=== PATIENT | female | born 1980 | race Caucasian/White ===

== ENCOUNTER 2020-05-05 10:03 | Emergency (ER) | payer MEDICAID ==
[2020-05-05] MEDS ORDERED: FLU VACC QS2020-21(6MOS UP)/PF 60 MCG/0.5 ML SYRINGE IM ONE (10:30)
--- NOTE | 2020-05-05 10:36 | EDM.PDOC ---
ED HPI GENERAL MEDICAL PROBLEM - General Chief Complaint: Skin Complaint Stated Complaint: ABCESS ON L FOOT Time Seen by Provider: 05/05/20 10:35 - History of Present Illness INITIAL COMMENTS - FREE TEXT/NARRATIVE: 39-year-old female presents the emergency room with a painful area on her left foot. This is been getting worse over the last couple of days. Patient is tried some Epson salts soaks at home. And this helps a little bit. Patient denies any trauma to the area. However, the patient was injecting IV drugs at that site. Patient has not had problems like this in the past. Is not had any fevers or chills and other than the foot pain has been feeling normal. Left Feet Pain Score (Numeric/FACES): 8 - Related Data Allergies Allergy/AdvReac Type Severity Reaction Status Date / Time No Known Allergies Allergy Verified 05/05/20 10:11 Home Meds: Home Meds FLUoxetine [PROzac] 0 mg PO DAILY 05/05/20 [History] Sulfamethoxazole/Trimethoprim [Bactrim Ds Tablet] 1 each PO BID #20 tablet 05/05/20 [Rx] lamoTRIgine [LaMICtal] 0 mg PO DAILY 05/05/20 [History] traZODone HCl [Trazodone HCl] 0 mg PO DAILY 05/05/20 [History] Past Medical History - Past Health History Medical/Surgical History: Denies Medical/Surgical History Psychiatric History: Reports: Addiction - Infectious Disease History Infectious Disease History: Reports: Hepatitis C, MRSA - Past Surgical History GI Surgical History: Reports: Cholecystectomy Social & Family History - Tobacco Use Smoking Status *Q: Current Every Day Smoker Years of Tobacco use: 24 Packs/Tins Daily: 0.5 - Caffeine Use Caffeine Use: Reports: Coffee, Soda - Recreational Drug Use Recreational Drug Use: Yes Recreational Drug Type: Reports: Methamphetamine ED ROS GENERAL - Review of Systems Review Of Systems: See Below Constitutional: Reports: No Symptoms Respiratory: Reports: No Symptoms Cardiovascular: Reports: No Symptoms GI/Abdominal: Reports: No Symptoms ED EXAM, SKIN/RASH Exam: See Below Exam Limited By: No Limitations General Appearance: Alert, No Apparent Distress, Other (Size are assuring however her pulse is a little fast at 117 she is afebrile) Head: Atraumatic, Normocephalic Neck: Normal Inspection, Supple, Non-Tender, Full Range of Motion. No: Lymphad enopathy (L), Lymphadenopathy (R) Respiratory/Chest: No Respiratory Distress, Lungs Clear, Normal Breath Sounds Cardiovascular: Regular Rate, Rhythm, No Edema, No Murmur GI/Abdominal: Normal Bowel Sounds, Soft, Non-Tender Skin: Other (On the dorsum of her left foot has an area roughly 2 cm round with a central area no obvious drainage. And no area of fluctuation. I attempted to benita this with a 18-gauge needle and did not reveal any underlying exudate.) Course - Vital Signs Last Recorded V/S: Last Vital Signs Temp 36.2 C 05/05/20 10:08 Pulse 117 H 05/05/20 10:08 Resp 16 05/05/20 10:08 BP 123/81 05/05/20 10:08 Pulse Ox 100 05/05/20 10:08 - Orders/Labs/Meds Orders: Active Orders 24 hr Category Date Time Status Influenza Vaccine Charge [RC] .DISCHARGE Care 05/05/20 10:14 Active Meds: Medications Discontinued Medications Generic Name Dose Route Start Last Admin Trade Name [place] PRN Reason Stop Dose Admin Influenza Virus Vaccine 60 mcg 05/05/20 10:30 05/05/20 11:01 Fluzone Quad [id number] Syringe IM 05/05/20 10:31 60 mcg .ONCE ONE Administration Trimethoprim/Sulfamethoxazole 1 tab 05/05/20 11:13 05/05/20 11:19 Septra Ds PO 05/05/20 11:14 1 tab ONETIME ONE Administration - Re-Assessments/Exams Free Text/Narrative Re-Assessment/Exam: 05/05/20 10:57 No fluctuant area was found with palpation of the area however I did attempt to open it with a needle and revealed nothing. Patient will be started on Bactrim DS 1 p.o. twice daily for 10 days first dose to be given here in the emergency room she is to continue the Epson salt soaks 4-6 times a day. Departure - Departure Time of Disposition: 10:58 Disposition: Home, Self-Care 01 Clinical Impression: Injection site abscess, IVDU (intravenous drug user) - Discharge Information Prescriptions: Sulfamethoxazole/Trimethoprim [Bactrim Ds Tablet] 1 each PO BID #20 tablet Instructions: IV Infiltration, [id number] Referrals: PCP,Unknown [Primary Care Provider] - Forms: ED Department Discharge, ED Return to Work/School Form Additional Instructions: Return to the emergency room with any questions problems or worsening symptoms. Follow-up with your regular healthcare provider for recheck on Tuesday or of this week. Take the antibiotics 1 twice daily until they are all gone. Continue the Epson salt soaks do this 4-6 times a day. Sepsis Event Note (ED) - Evaluation Sepsis Screening Result: No Definite Risk - Focused Exam Vital Signs: Vital Signs Temp Pulse Resp BP Pulse Ox 05/05/20 10:08 36.2 C 117 H 16 123/81 100 - My Orders Last 24 Hours: My Active Orders 05/05/20 10:14 Influenza Vaccine Charge [RC] .DISCHARGE - Assessment/Plan Last 24 Hours: My Active Orders 05/05/20 10:14 Influenza Vaccine Charge [RC] .DISCHARGE
[2020-05-05] MEDS ORDERED: Sulfamethoxazole/Trimethoprim 800-160 MG Tab PO ONE (11:13)
== END 2020-05-05 11:35 | disposition home or self-care (01) ==
LOC: JD.ED 10:03
DX: L02.612 Cutaneous abscess of left foot (principal); F15.10 Other stimulant abuse, uncomplicated; F17.210 Nicotine dependence, cigarettes, uncomplicated; Z79.899 Other long term (current) drug therapy; Z23 Encounter for immunization
CPT/HCPCS: 90471; 90686; 99282; A9270; G0008

== ENCOUNTER 2021-01-10 10:57 | Emergency (ER) | payer MEDICAID ==
[2021-01-10] MEDS ORDERED: Sodium Chloride 0.9% 10 ML Syringe FLUSH PRN (11:12)
--- NOTE | 2021-01-10 11:20 | EDM.PDOC ---
ED HPI GENERAL MEDICAL PROBLEM - General Chief Complaint: Skin Complaint Stated Complaint: L ARM PAIN Time Seen by Provider: 01/10/21 11:06 Source of Information: Reports: Patient, RN Notes Reviewed History Limitations: Reports: No Limitations - History of Present Illness INITIAL COMMENTS - FREE TEXT/NARRATIVE: Patient is a 40-year-old female who presents to the ER for the evaluation of her left arm redness and swelling. Patient is an IV meth user, and states that she recently relapsed a few weeks ago. Notes that she has had this area on her left inner forearm, that has started to get red, tender and it had increased swelling for the past week. She states that she does have a history of MRSA, and has had abscesses like this in the past. She is not having any fevers or chills, cough, nausea/vomiting/diarrhea. She does state that she is having a difficult time taking a deep breath. She has not taken anything at home for pain management. She did have some leftover penicillin, and thought she would take this to see if this could help, but it was not helping. Left Arm Pain Score (Numeric/FACES): 10 - Related Data Allergies Allergy/AdvReac Type Severity Reaction Status Date / Time No Known Allergies Allergy Verified 01/10/21 11:06 Home Meds: Home Meds Acetaminophen/oxyCODONE [Percocet 325-5 MG] 1 each PO Q6H PRN #12 tab 01/10/21 [Rx] Sulfamethoxazole/Trimethoprim [Sulfamethoxazole-Tmp Ds Tablet] 1 tab PO BID #20 tablet 01/10/21 [Rx] Past Medical History Psychiatric History: Reports: Addiction - Infectious Disease History Infectious Disease History: Reports: Hepatitis C, MRSA - Past Surgical History GI Surgical History: Reports: Cholecystectomy Social & Family History - Tobacco Use Tobacco Use Status *Q: Current Every Day Tobacco User Years of Tobacco use: 24 Packs/Tins Daily: 0.5 - Caffeine Use Caffeine Use: Reports: None - Recreational Drug Use Recreational Drug Use: Yes Recreational Drug Type: Reports: Methamphetamine Recreational Drug Use Frequency: Rarely ED ROS GENERAL - Review of Systems Review Of Systems: Comprehensive ROS is negative, except as noted in HPI. ED EXAM, SKIN/RASH Exam: See Below Exam Limited By: No Limitations General Appearance: Alert, WD/WN, No Apparent Distress, Anxious (slight generalized) Respiratory/Chest: No Respiratory Distress, Lungs Clear, Normal Breath Sounds, No Accessory Muscle Use, Chest Non-Tender Cardiovascular: Normal Peripheral Pulses, Regular Rate, Rhythm, No Edema GI/Abdominal: Normal Bowel Sounds, Soft, Non-Tender, No Distention, No Mass Extremities: Normal Inspection, Normal Capillary Refill Neurological: Alert, Oriented, Normal Cognition, No Motor/Sensory Deficits Psychiatric: Normal Affect, Normal Mood, Anxious (slight generalized) Skin: Warm, Dry, Intact, No Rash, Erythema (of left inner forearm, measures around 9x9cm; tenderness noted-no red streaking noted) Course - Vital Signs Last Recorded V/S: Last Vital Signs Temp 98 F 01/10/21 13:20 Pulse 90 01/10/21 13:20 Resp 16 01/10/21 13:20 BP 119/79 01/10/21 13:20 Pulse Ox 100 01/10/21 13:20 - Orders/Labs/Meds Orders: Active Orders 24 hr Category Date Time Status Chest 2V [CR] Stat Exams 01/10/21 11:12 Taken CULTURE BLOOD [BC] Stat Lab 01/10/21 12:04 Received CULTURE BLOOD [BC] Stat Lab 01/10/21 12:16 Received Blood Culture x2 Reflex Set [OM.PC] Stat Oth 01/10/21 11:23 Ordered Peripheral IV Insertion Adult [OM.PC] Routine Oth 01/10/21 11:12 Ordered Labs: Laboratory Tests 01/10/21 01/10/21 Range/Units 12:04 12:04 WBC 12.95 H (3.98-10.04) K/mm3 RBC 4.69 (3.98-5.22) M/mm3 Hgb 14.5 (11.2-15.7) gm/dl Hct 41.5 (34.1-44.9) % MCV 88.5 (79.4-94.8) fl MCH 30.9 (25.6-32.2) pg MCHC 34.9 (32.2-35.5) g/dl RDW Std Deviation 40.2 (36.4-46.3) fL Plt Count 181 L (182-369) K/mm3 MPV 9.6 (9.4-12.3) fl Neut % (Auto) 81.4 H (34.0-71.1) % Lymph % (Auto) 11.1 L (19.3-51.7) % [place] % (Auto) 6.5 (4.7-12.5) % Eos % (Auto) 0.6 L (0.7-5.8) Baso % (Auto) 0.2 (0.1-1.2) % Neut # (Auto) 10.55 H (1.56-6.13) K/mm3 Lymph # (Auto) 1.44 (1.18-3.74) K/mm3 [place] # (Auto) 0.84 H (0.24-0.36) K/mm3 Eos # (Auto) 0.08 (0.04-0.36) K/mm3 Baso # (Auto) 0.02 (0.01-0.08) K/mm3 Manual Slide Review Normal smear Sodium 133 L (136-145) mEq/L Potassium 4.2 (3.5-5.1) mEq/L Chloride 97 L (98-107) mEq/L Carbon Dioxide 22 (21-32) mEq/L Anion Gap 18.2 H (5-15) BUN 10 (7-18) mg/dL Creatinine 0.7 (0.55-1.02) mg/dL Est Cr Clr Drug Dosing 92.25 mL/min Estimated GFR (MDRD) > 60 (>60) mL/min BUN/Creatinine Ratio 14.3 (14-18) Glucose 120 H (70-99) mg/dL Calcium 8.8 (8.5-10.1) mg/dL Total Bilirubin 0.8 (0.2-1.0) mg/dL AST 28 (15-37) U/L ALT 63 H (14-59) U/L Alkaline Phosphatase 51 (46-116) U/L C-Reactive Protein 4.1 H* (<1.0) mg/dL Total Protein 7.5 (6.4-8.2) g/dl Albumin 3.3 L (3.4-5.0) g/dl Globulin 4.2 gm/dL Albumin/Globulin Ratio 0.8 L (1-2) Meds: Medications Discontinued Medications Generic Name Dose Route Start Last Admin Trade Name Freq PRN Reason Stop Dose Admin Ceftriaxone Sodium 2 gm/ 100 mls @ 200 mls/hr 01/10/21 11:23 06/19/21 12:18 Sodium Chloride IV 01/10/21 11:52 200 mls/hr ONETIME ONE Administration Ketorolac Tromethamine 30 mg 01/10/21 11:29 01/10/21 12:22 Ketorolac 30 Mg/Ml Sdv IVPUSH 01/10/21 11:30 30 mg ONETIME ONE Administration Sodium Chloride 10 ml 01/10/21 11:12 01/10/21 12:22 Sodium Chloride 0.9% 10 Ml Syringe FLUSH 10 ml ASDIRECTED PRN Administration Keep Vein Open - Re-Assessments/Exams Free Text/Narrative Re-Assessment/Exam: 01/10/21 11:29 Patient presents to the ER with her left arm redness tenderness and swelling. It does look like she has a fairly large abscess measuring 9 x 9 cm. We will go ahead and get some basic labs, try to get IV started as she states she is a pretty hard IV stick. If we cannot do IV, then we will have to get her IM meds. Patient verbalized understanding. 01/10/21 13:05 Patient's white count mildly elevated at 12.95, CRP elevated at 4.2. Metabolic panel essentially unremarkable for today's purposes. Patient has been given 2 g Rocephin IV, we will start her on oral Bactrim, and give her some tablets of Percocet for the next few days to help manage the pain and recommend that she also take some ibuprofen in conjunction. Departure - Departure Time of Disposition: 13:06 Disposition: Home, Self-Care 01 Clinical Impression: Injection site abscess Qualifiers: Encounter type: initial encounter Qualified Code(s): T80.29XA - Infection following other infusion, transfusion and therapeutic injection, initial encounter - Discharge Information *PRESCRIPTION DRUG MONITORING PROGRAM REVIEWED*: Yes *COPY OF PRESCRIPTION DRUG MONITORING REPORT IN PATIENT CHUCK: No Prescriptions: Acetaminophen/oxyCODONE [Percocet 325-5 MG] 1 each PO Q6H PRN #12 tab PRN Reason: Pain Sulfamethoxazole/Trimethoprim [Sulfamethoxazole-Tmp Ds Tablet] 1 tab PO BID #20 tablet Instructions: Skin Abscess, [id number] Referrals: PCP,None [Primary Care Provider] - Forms: ED Department Discharge Additional Instructions: You were evaluated in the ER today regarding a suspected skin infection. It does appear that you have a cellulitis with abscess. Your skin was marked around the borders of the redness, if this redness should extend 2 finger widths past this initial jaja, recommend you seek care for re-evaluation. You were given an antibiotic, sulfamethoxazole/trimethoprim (Bactrim) please take as prescribed until the course is done or told otherwise by different provider. Please note that this antibiotic will take at least 48 hours to start working appropriately. You were given your first dose of antibiotics via your IV site in the ER today. You may try to use heat/ice packs to the area to help reduce pain/swelling. You may take 600 mg ibuprofen every 6 hours as needed for further pain relief. Do not exceed 3200 mg ibuprofen in a 24-hour time span. You were given a prescription for a strong pain medication, oxycodone/acetaminop hen 5/325 mg, please take 1 tab every 6 hours as needed for pain not relieved by Tylenol or ibuprofen alone. These medications can be addictive, so please take as few as possible to achieve adequate pain control. These meds can also be quite constipating, recommend that you increase your oral fluid intake and take a stool softener like MiraLAX while taking these medications. Do not drive while taking this medication. These medications were electronically sent to the [facility] located near [facility]. Please return to the ER at any time if your symptoms change or worsen. Sepsis Event Note (ED) - Evaluation Sepsis Screening Result: No Definite Risk - Focused Exam Vital Signs: Vital Signs Temp Pulse Resp BP Pulse Ox 01/10/21 13:20 98 F 90 16 119/79 100 01/10/21 11:05 98.4 F 105 H 20 135/84 100 - My Orders Last 24 Hours: My Active Orders 01/10/21 11:12 Chest 2V [CR] Stat Peripheral IV Insertion Adult [OM.PC] Routine 01/10/21 11:23 Blood Culture x2 Reflex Set [OM.PC] Stat 01/10/21 12:04 CULTURE BLOOD [BC] Stat 01/10/21 12:16 CULTURE BLOOD [BC] Stat - Assessment/Plan Last 24 Hours: My Active Orders 01/10/21 11:12 Chest 2V [CR] Stat Peripheral IV Insertion Adult [OM.PC] Routine 01/10/21 11:23 Blood Culture x2 Reflex Set [OM.PC] Stat 01/10/21 12:04 CULTURE BLOOD [BC] Stat 01/10/21 12:16 CULTURE BLOOD [] Stat
[2021-01-10] MEDS ORDERED: cefTRIAXone 2 GM in Sodium Chloride 0.9% 100 ML IV ONE (11:23)
[2021-01-10] MEDS ORDERED: Ketorolac 30 MG/ML SDV IVPUSH ONE (11:29)
--- NOTE | 2021-01-11 08:49 | CR ---
Chest: 2 views of the chest were obtained. Comparison: No prior chest imaging is available. Heart size and mediastinum are normal. Lungs are clear with no acute parenchymal change. Bony structures are within normal limits. Impression: 1. Nothing acute is seen on 2 view chest x-ray. Diagnostic code #1
== END 2021-01-10 13:25 | disposition home or self-care (01) ==
LOC: JD.ED 10:57
DX: L02.414 Cutaneous abscess of left upper limb (principal); Z72.0 Tobacco use
CPT/HCPCS: 36415; 71046; 80053; 85025; 86140; 87040; 87077; 87186; 96365; 96375; 99283; J0696; J1885

== ENCOUNTER 2021-01-11 10:32 | Inpatient (IN) | payer MEDICAID ==
[2021-01-11] MEDS ORDERED: cefTRIAXone 2 GM in Sodium Chloride 0.9% 100 ML IV ONE (10:49)
[2021-01-11] MEDS ORDERED: Sodium Chloride 0.9% 1,000 ML IV SCH (11:00)
[2021-01-11] MEDS ORDERED: HYDROmorphone 0.5 MG/0.5 ML Syringe IVPUSH ONE (11:06)
[2021-01-11] MEDS: Sodium Chloride 0.9% 10 ML Syringe FLUSH PRN ×2 (11:10→16:34)
[2021-01-11] MEDS ORDERED: Promethazine 12.5 MG in Sodium Chloride 0.9% 50 ML IV PRN (11:27)
[2021-01-11] MEDS ORDERED: Acetaminophen 325 MG Tab PO PRN (11:27)
[2021-01-11] MEDS ORDERED: Albuterol/Ipratropium 3.0-0.5 MG/3 ML Neb Soln NEB PRN (11:27)
[2021-01-11] MEDS ORDERED: hydrALAZINE 20 MG/ML SDV IVPUSH PRN (11:37)
--- NOTE | 2021-01-11 11:39 | EDM.PDOC ---
ED HPI GENERAL MEDICAL PROBLEM - General Chief Complaint: Possible Sepsis Stated Complaint: INFECTED ARM Time Seen by Provider: 01/11/21 10:39 Source of Information: Reports: Patient History Limitations: Reports: No Limitations - History of Present Illness INITIAL COMMENTS - FREE TEXT/NARRATIVE: The patient returns to the ER. I called her back. She was seen yesterday for cellulitis to her left arm. Blood cultures were done and 3 out of 4 bottles were growing out gram positive cocci in clusters. I was able to get in contact with her and she says she is feeling fine but I let her know she should be admitted for IV antibiotics. She agreed and came back. She still has pain to the left arm. She still has some chest pain like yesterday. Her CXR looked good. She has no fever, chills, cough, abdominal pain, nausea or vomiting. She did admit to injecting meth about a week ago and that is what caused the infection. Onset: Gradual Duration: Day(s): Location: Reports: Upper Extremity, Left (forearm) Quality: Reports: Sharp Severity: Moderate Improves with: Reports: None Worsens with: Reports: None Associated Symptoms: Reports: Chest Pain. Denies: Cough, Fever/Chills, Headaches, Nausea/Vomiting, Shortness of Breath Middle Chest Pain Score (Numeric/FACES): 6 - Related Data Allergies Allergy/AdvReac Type Severity Reaction Status Date / Time No Known Allergies Allergy Verified 01/11/21 10:41 Home Meds: Home Meds Acetaminophen/oxyCODONE [Percocet 325-5 MG] 1 each PO Q6H PRN #12 tab 01/10/21 [Rx] Sulfamethoxazole/Trimethoprim [Sulfamethoxazole-Tmp Ds Tablet] 1 tab PO BID #20 tablet 01/10/21 [Rx] Past Medical History - Past Health History Medical/Surgical History: Denies Medical/Surgical History Psychiatric History: Reports: Addiction - Infectious Disease History Infectious Disease History: Reports: Hepatitis C, MRSA - Past Surgical History GI Surgical History: Reports: Cholecystectomy Social & Family History - Caffeine Use Caffeine Use: Reports: None ED ROS GENERAL - Review of Systems Review Of Systems: See Below Constitutional: Reports: No Symptoms HEENT: Reports: No Symptoms Respiratory: Reports: No Symptoms Cardiovascular: Reports: Chest Pain Endocrine: Reports: No Symptoms GI/Abdominal: Reports: No Symptoms : Reports: No Symptoms Musculoskeletal: Reports: Other (Left arm pain and swelling) ED EXAM, SEPSIS - Physical Exam Exam: See Below Exam Limited By: No Limitations General Appearance: Alert, No Apparent Distress Ears: Normal External Exam Nose: Normal Inspection Head: Atraumatic, Normocephalic Neck: Normal Inspection Respiratory/Chest: No Respiratory Distress, Lungs Clear, Normal Breath Sounds Cardiovascular: Regular Rate, Rhythm, No Edema, No Murmur GI/Abdominal Exam: Soft, Non-Tender, No Organomegaly, No Mass Extremities: Other (Erythema and edema to the left inner forearm) Course - Vital Signs Last Recorded V/S: Last Vital Signs Temp 98.9 F 01/11/21 10:38 Pulse 99 01/11/21 10:38 Resp 16 01/11/21 10:38 BP 107/79 01/11/21 10:38 Pulse Ox 99 01/11/21 10:38 - Orders/Labs/Meds Orders: Active Orders 24 hr Category Date Time Status Peripheral IV Care [RC] . DIRECTED Care 01/11/21 10:48 Active C-REACTIVE PROTEIN [CHEM] Stat Lab 01/11/21 10:59 Received COMPREHENSIVE METABOLIC PN,CMP [CHEM] Stat Lab 01/11/21 10:59 Received LACTIC ACID SEPSIS W/ REFLEX [LACTATE SEPSIS W/ REFLEX] Lab 01/11/21 10:59 Received [CHEM] Stat Sodium Chloride 0.9% [Normal Saline] 1,000 ml Med 01/11/21 11:00 Active IV ASDIRECTED Sodium Chloride 0.9% [Saline Flush] Med 01/11/21 10:48 Active 10 ml FLUSH ASDIRECTED PRN Vancomycin [Vancocin] 1.5 gm Med 01/11/21 10:53 Active Sodium Chloride 0.9% [Normal Saline (AdvBag)] 250 ml IV ONETIME Peripheral IV Insertion Adult [OM.PC] Routine Oth 01/11/21 10:48 Ordered Medication Orders Sodium Chloride (Normal Saline) 1,000 mls @ 150 mls/hr IV ASDIRECTED THOMAS Last Admin: 01/11/21 11:07 Dose: 150 mls/hr Documented by: BRIONNA Vancomycin HCl 1.5 gm/ Sodium (Chloride) 250 mls @ 250 mls/hr IV ONETIME ONE Stop: 01/11/21 11:52 Sodium Chloride (Sodium Chloride 0.9% 10 Ml Syringe) 10 ml FLUSH ASDIRECTED PRN PRN Reason: Keep Vein Open Last Admin: 01/11/21 11:10 Dose: 10 ml Documented by: BRIONNA Labs: Laboratory Tests 01/11/21 01/11/21 Range/Units 10:38 10:59 WBC 15.66 H (3.98-10.04) K/mm3 RBC 4.64 (3.98-5.22) M/mm3 Hgb 14.3 (11.2-15.7) gm/dl Hct 41.7 (34.1-44.9) % MCV 89.9 (79.4-94.8) fl MCH 30.8 (25.6-32.2) pg MCHC 34.3 (32.2-35.5) g/dl RDW Std Deviation 40.4 (36.4-46.3) fL Plt Count 173 L (182-369) K/mm3 MPV 9.6 (9.4-12.3) fl Neut % (Auto) 79.8 H (34.0-71.1) % Lymph % (Auto) 10.4 L (19.3-51.7) % [place] % (Auto) 8.6 (4.7-12.5) % Eos % (Auto) 0.7 (0.7-5.8) Baso % (Auto) 0.1 (0.1-1.2) % Neut # (Auto) 12.49 H (1.56-6.13) K/mm3 Lymph # (Auto) 1.63 (1.18-3.74) K/mm3 [place] # (Auto) 1.35 H (0.24-0.36) K/mm3 Eos # (Auto) 0.11 (0.04-0.36) K/mm3 Baso # (Auto) 0.02 (0.01-0.08) K/mm3 Manual Slide Review Normal smear SARS-CoV-2 RNA (ANALISA) Negative (NEGATIVE) Meds: Medications Generic Name Dose Route Start Last Admin Trade Name Freq PRN Reason Stop Dose Admin Sodium Chloride 1,000 mls @ 150 mls/hr 01/11/21 11:00 01/11/21 11:07 Normal Saline IV 150 mls/hr ASDIRECTED THOMAS Administration Vancomycin HCl 1.5 gm/ Sodium 250 mls @ 250 mls/hr 01/11/21 10:53 Chloride IV 01/11/21 11:52 ONETIME ONE Sodium Chloride 10 ml 01/11/21 10:48 01/11/21 11:10 Sodium Chloride 0.9% 10 Ml Syringe FLUSH 10 ml ASDIRECTED PRN Administration Keep Vein Open Discontinued Medications Generic Name Dose Route Start Last Admin Trade Name Freq PRN Reason Stop Dose Admin Hydromorphone HCl 0.5 mg 01/11/21 11:06 01/11/21 11:09 Hydromorphone 0.5 Mg/0.5 Ml Syringe IVPUSH 01/11/21 11:07 0.5 mg ONETIME ONE Administration Ceftriaxone Sodium 2 gm/ 100 mls @ 200 mls/hr 01/11/21 10:49 01/11/21 11:07 Sodium Chloride IV 01/11/21 11:18 200 mls/hr ONETIME ONE Administration - Re-Assessments/Exams Free Text/Narrative Re-Assessment/Exam: 01/11/21 11:40 I ordered an IV saline lock, rocephin 2 grams IV, vancomycin 1.5mg IV, labs, and lactic acid. She is COVID negative. Her WBC has gone up slightly to 15.66. I called Dr Whiteside and he agreed to the admission. Departure - Departure Time of Disposition: 11:45 Disposition: Admitted As Inpatient 66 Condition: Poor Clinical Impression: IVDU (intravenous drug user), Cellulitis of left arm - Discharge Information Referrals: Karina Atkinson MD [Primary Care Provider] - Sepsis Event Note (ED) - Evaluation Sepsis Screening Result: No Definite Risk - Focused Exam Vital Signs: Vital Signs Temp Pulse Resp BP Pulse Ox 01/11/21 10:38 98.9 F 99 16 107/79 99 - My Orders Last 24 Hours: My Active Orders 01/11/21 10:48 Peripheral IV Care [RC] . DIRECTED Sodium Chloride 0.9% [Saline Flush] 10 ml FLUSH ASDIRECTED PRN Peripheral IV Insertion Adult [OM.PC] Routine 01/11/21 10:53 Vancomycin [Vancocin] 1.5 gm Sodium Chloride 0.9% [Normal Saline (AdvBag)] 250 ml IV ONETIME 01/11/21 10:59 C-REACTIVE PROTEIN [CHEM] Stat COMPREHENSIVE METABOLIC PN,CMP [CHEM] Stat LACTIC ACID SEPSIS W/ REFLEX [LACTATE SEPSIS W/ REFLEX] [CHEM] Stat 01/11/21 11:00 Sodium Chloride 0.9% [Normal Saline] 1,000 ml IV ASDIRECTED - Assessment/Plan Last 24 Hours: My Active Orders 01/11/21 10:48 Peripheral IV Care [RC] . DIRECTED Sodium Chloride 0.9% [Saline Flush] 10 ml FLUSH ASDIRECTED PRN Peripheral IV Insertion Adult [OM.PC] Routine 01/11/21 10:53 Vancomycin [Vancocin] 1.5 gm Sodium Chloride 0.9% [Normal Saline (AdvBag)] 250 ml IV ONETIME 01/11/21 10:59 C-REACTIVE PROTEIN [CHEM] Stat COMPREHENSIVE METABOLIC PN,CMP [CHEM] Stat LACTIC ACID SEPSIS W/ REFLEX [LACTATE SEPSIS W/ REFLEX] [CHEM] Stat 01/11/21 11:00 Sodium Chloride 0.9% [Normal Saline] 1,000 ml IV ASDIRECTED
[2021-01-11] MEDS ORDERED: Enoxaparin 40 MG/0.4 ML Syringe SUBCUT SCH (13:00)
[2021-01-11] MEDS: Acetaminophen/HYDROcodone 325-5 MG Tab PO PRN ×2 (13:16→18:54)
[2021-01-11] MEDS: Docusate Sodium 100 MG Cap PO PRN (13:17)
--- NOTE | 2021-01-11 13:57 | PCM.HP.2 ---
H&P History of Present Illness - General Date of Service: 01/11/21 Admit Problem/Dx: Admission Diagnosis/Problem Admission Diagnosis/Problem Cellulitis Source of Information: Patient - History of Present Illness Initial Comments - Free Text/Narative: Patient is a 40-year-old female with a history of IV drug abuse (amphetamine) and a current smoker who was called back due to positive blood culture-gram- positive cocci. Patient came to the ER yesterday due to left forearm pain swelling and redness. She was discharged to home with antibiotics after blood culture was drawn. Today blood culture came back showed positive from all 4 bottles. Patient reports that her left forearm started to redness, pain and swelling for about 1 week. She admits that she injects amphetamine. Last dose was 4 days ago. She also complains of mild shortness of breath, headache, dizziness, and chills for states. She has substernal chest pain when she takes deep breath for days. She does not have any chest pain when she keeps chest still. Otherwise she denies abdominal pain, nausea, vomiting, diarrhea, pal pitation, or change in vision. Middle Chest Pain Score (Numeric/FACES): 7 Left Inner Forearm Pain Score (Numeric/FACES): 9 - Related Data Allergies/Adverse Reactions: Allergies Allergy/AdvReac Type Severity Reaction Status Date / Time No Known Allergies Allergy Verified 01/11/21 10:41 Home Medications: Home Meds Acetaminophen/oxyCODONE [Percocet 325-5 MG] 1 each PO Q6H PRN #12 tab 01/10/21 [Rx] Sulfamethoxazole/Trimethoprim [Sulfamethoxazole-Tmp Ds Tablet] 1 tab PO BID #20 tablet 01/10/21 [Rx] Past Medical History - Past Health History Medical/Surgical History: Denies Medical/Surgical History Psychiatric History: Reports: Addiction - Infectious Disease History Infectious Disease History: Reports: Hepatitis C, MRSA - Past Surgical History GI Surgical History: Reports: Cholecystectomy Social & Family History - Family History Family Medical History: No Pertinent Family History (Denies genetic diseases in family) - Caffeine Use Caffeine Use: Reports: None H&P Review of Systems - Review of Systems: Review Of Systems: See Below General: Reports: Chills HEENT: Reports: No Symptoms, Headaches Pulmonary: Reports: Shortness of Breath Cardiovascular: Reports: Chest Pain, Lightheadedness Gastrointestinal: Reports: No Symptoms Genitourinary: Reports: No Symptoms Musculoskeletal: Reports: No Symptoms Skin: Reports: Change in Color (Left forearm redness, swelling and pain) Psychiatric: Reports: No Symptoms Neurological: Reports: No Symptoms Hematologic/Lymphatic: Reports: No Symptoms Immunologic: Reports: No Symptoms Exam - Exam Exam: See Below - Vital Signs Vital Signs: Last Vital Signs Temp 36.9 C 01/11/21 11:45 Pulse 95 01/11/21 11:45 Resp 18 01/11/21 11:45 BP 106/70 01/11/21 11:45 Pulse Ox 98 01/11/21 11:45 Weight: 65.771 kg - Exam General: Alert, Oriented, Cooperative HEENT: Conjunctiva Clear, EOMI, Pupils Equal, Pupils Reactive Neck: Supple, Trachea Midline, +2 Carotid Pulse wo Bruit, Full Range of Motion Lungs: Clear to Auscultation, Normal Respiratory Effort Cardiovascular: Regular Rate, Regular Rhythm, Normal S1, Normal S2, Other (no chest tenderness) GI/Abdominal Exam: Normal Bowel Sounds, Soft, Non-Tender, No Organomegaly, No Distention Extremities: Normal Inspection, Normal Range of Motion, Non-Tender, No Pedal Edema, Arm Pain (left forearm erythema, edema and tenderness) Skin: Warm, Dry, Intact (iv injection jaja in the dorsal aspect of feet) Neurological: Cranial Nerves Intact, Strength Equal Bilateral, Normal Speech, Normal Tone, Sensation Intact Neuro Extensive - Mental Status: Alert, Oriented x3, Normal Mood/Affect Psychiatric: Alert, Normal Affect, Normal Mood - Patient Data Lab Results Last 24 hrs: Laboratory Results - last 24 hr 01/11/21 01/11/21 01/11/21 Range/Units 10:38 10:59 10:59 WBC 15.66 H (3.98-10.04) K/mm3 RBC 4.64 (3.98-5.22) M/mm3 Hgb 14.3 (11.2-15.7) gm/dl Hct 41.7 (34.1-44.9) % MCV 89.9 (79.4-94.8) fl MCH 30.8 (25.6-32.2) pg MCHC 34.3 (32.2-35.5) g/dl RDW Std Deviation 40.4 (36.4-46.3) fL Plt Count 173 L (182-369) K/mm3 MPV 9.6 (9.4-12.3) fl Neut % (Auto) 79.8 H (34.0-71.1) % Lymph % (Auto) 10.4 L (19.3-51.7) % [place] % (Auto) 8.6 (4.7-12.5) % Eos % (Auto) 0.7 (0.7-5.8) Baso % (Auto) 0.1 (0.1-1.2) % Neut # (Auto) 12.49 H (1.56-6.13) K/mm3 Lymph # (Auto) 1.63 (1.18-3.74) K/mm3 [place] # (Auto) 1.35 H (0.24-0.36) K/mm3 Eos # (Auto) 0.11 (0.04-0.36) K/mm3 Baso # (Auto) 0.02 (0.01-0.08) K/mm3 Manual Slide Review Normal smear Sodium 133 L (136-145) mEq/L Potassium 4.0 (3.5-5.1) mEq/L Chloride 98 (98-107) mEq/L Carbon Dioxide 23 (21-32) mEq/L Anion Gap 16.0 H (5-15) BUN 8 (7-18) mg/dL Creatinine 0.9 (0.55-1.02) mg/dL Est Cr Clr Drug Dosing 80.80 mL/min Estimated GFR (MDRD) > 60 (>60) mL/min BUN/Creatinine Ratio 8.9 L (14-18) Glucose 116 H (70-99) mg/dL Lactic Acid (0.4-2.0) mmol/L Calcium 8.8 (8.5-10.1) mg/dL Total Bilirubin 0.6 (0.2-1.0) mg/dL AST 19 (15-37) U/L ALT 47 (14-59) U/L Alkaline Phosphatase 52 (46-116) U/L C-Reactive Protein 11.8 H* (<1.0) mg/dL Total Protein 7.6 (6.4-8.2) g/dl Albumin 3.1 L (3.4-5.0) g/dl Globulin 4.5 gm/dL Albumin/Globulin Ratio 0.7 L (1-2) SARS-CoV-2 RNA (ANALISA) Negative (NEGATIVE) 01/11/21 Range/Units 10:59 WBC (3.98-10.04) K/mm3 RBC (3.98-5.22) M/mm3 Hgb (11.2-15.7) gm/dl Hct (34.1-44.9) % MCV (79.4-94.8) fl MCH (25.6-32.2) pg MCHC (32.2-35.5) g/dl RDW Std Deviation (36.4-46.3) fL Plt Count (182-369) K/mm3 MPV (9.4-12.3) fl Neut % (Auto) (34.0-71.1) % Lymph % (Auto) (19.3-51.7) % [place] % (Auto) (4.7-12.5) % Eos % (Auto) (0.7-5.8) Baso % (Auto) (0.1-1.2) % Neut # (Auto) (1.56-6.13) K/mm3 Lymph # (Auto) (1.18-3.74) K/mm3 [place] # (Auto) (0.24-0.36) K/mm3 Eos # (Auto) (0.04-0.36) K/mm3 Baso # (Auto) (0.01-0.08) K/mm3 Manual Slide Review Sodium (136-145) mEq/L Potassium (3.5-5.1) mEq/L Chloride (98-107) mEq/L Carbon Dioxide (21-32) mEq/L Anion Gap (5-15) BUN (7-18) mg/dL Creatinine (0.55-1.02) mg/dL Est Cr Clr Drug Dosing mL/min Estimated GFR (MDRD) (>60) mL/min BUN/Creatinine Ratio (14-18) Glucose (70-99) mg/dL Lactic Acid 1.1 (0.4-2.0) mmol/L Calcium (8.5-10.1) mg/dL Total Bilirubin (0.2-1.0) mg/dL AST (15-37) U/L ALT (14-59) U/L Alkaline Phosphatase (46-116) U/L C-Reactive Protein (<1.0) mg/dL Total Protein (6.4-8.2) g/dl Albumin (3.4-5.0) g/dl Globulin gm/dL Albumin/Globulin Ratio (1-2) SARS-CoV-2 RNA (ANALISA) (NEGATIVE) Result Diagrams: 01/11/21 10:59 01/11/21 10:59 Sepsis Event Note - Evaluation Sepsis Screening Result: Sepsis Risk - Focused Exam Vital Signs: Vital Signs Temp Pulse Resp BP Pulse Ox 01/11/21 11:45 36.9 C 95 18 106/70 98 01/11/21 10:38 37.2 C 99 16 107/79 99 Problem List Initiated/Reviewed/Updated: Yes Orders Last 24hrs: Active Orders 24 hr Category Date Time Status Patient Status [ADT] Routine ADT 01/11/21 11:28 Active Intake and Output [RC] QSHIFT Care 01/11/21 11:29 Active Oxygen Therapy [RC] PRN Care 01/11/21 11:28 Active Peripheral IV Care [RC] . DIRECTED Care 01/11/21 10:48 Active RT Aerosol Therapy [RC] ASDIRECTED Care 01/11/21 11:31 Active Up to Chair [RC] ASDIRECTED Care 01/11/21 11:27 Active VTE/DVT Education [RC] PER UNIT ROUTINE Care 01/11/21 11:28 Active Vital Signs [RC] Q4H Care 01/11/21 11:28 Active Regular Diet [DIET] Diet 01/11/21 Lunch Active Chest wo Cont [CT] Routine Exams 01/11/21 13:47 Ordered Echo 2D wo Cont [US] Routine Exams 01/12/21 08:00 Ordered VL Duplex Upr Ext Art Ltd Lt [US] Routine Exams 01/11/21 13:36 Ordered CBC WITH AUTO DIFF [HEME] DAILY Lab 01/12/21 05:00 Ordered CBC WITH AUTO DIFF [HEME] DAILY Lab 01/13/21 05:00 Ordered CBC WITH AUTO DIFF [HEME] DAILY Lab 01/14/21 05:00 Ordered CBC WITH AUTO DIFF [HEME] DAILY Lab 01/15/21 05:00 Ordered CBC WITH AUTO DIFF [HEME] DAILY Lab 01/16/21 05:00 Ordered COMPREHENSIVE METABOLIC PN,CMP [CHEM] DAILY Lab 01/12/21 05:00 Ordered COMPREHENSIVE METABOLIC PN,CMP [CHEM] DAILY Lab 01/13/21 05:00 Ordered COMPREHENSIVE METABOLIC PN,CMP [CHEM] DAILY Lab 01/14/21 05:00 Ordered COMPREHENSIVE METABOLIC PN,CMP [CHEM] DAILY Lab 01/15/21 05:00 Ordered COMPREHENSIVE METABOLIC PN,CMP [CHEM] DAILY Lab 01/16/21 05:00 Ordered CULTURE BLOOD [BC] Stat Lab 01/11/21 12:09 Received CULTURE BLOOD [BC] Stat Lab 01/11/21 12:16 Received CULTURE MRSA [RM] Stat Lab 01/11/21 11:27 Ordered METH-RESIST S.AUR,MRSA BY PCR [MOLEC] Routine Lab 01/11/21 13:38 Ordered Preg Urine [HCG QUALITATIVE,URINE] [URCHEM] Routine Lab 01/11/21 13:50 Ordered TROPONIN I [CHEM] Q6H Lab 01/11/21 13:45 Ordered TROPONIN I [CHEM] Q6H Lab 01/11/21 19:45 Ordered VANCOMYCIN TROUGH [CHEM] Timed Lab 01/12/21 11:00 Ordered Acetaminophen [TylenoL] Med 01/11/21 11:27 Active 650 mg PO Q6H PRN Acetaminophen/HYDROcodone [[place] 325-5 MG] Med 01/11/21 11:27 Active 1 tab PO Q6H PRN Albuterol/Ipratropium [DuoNeb 3.0-0.5 MG/3 ML] Med 01/11/21 11:27 Active 3 ml NEB Q4H PRN Aspirin Med 01/11/21 13:45 Ordered 81 mg PO DAILY Docusate Sodium [Colace] Med 01/11/21 11:27 Active 100 mg PO BID PRN Enoxaparin [Lovenox] Med 01/11/21 13:00 Active 40 mg SUBCUT Q24H Lactated Ringers [Ringers, Lactated] 1,000 ml Med 01/11/21 11:30 Active IV ASDIRECTED Morphine Med 01/11/21 11:27 Active 2 mg IVPUSH Q4H PRN Nicotine [Habitrol] Med 01/11/21 13:45 Ordered 14 mg TRDERM DAILY Pharmacy to Dose - Vancomycin Med 01/11/21 11:45 Active 1 dose .XX ASDIRECTED PRN Promethazine [Phenergan] 12.5 mg Med 01/11/21 11:27 Active Sodium Chloride 0.9% [Normal Saline] 50 ml IV Q6H Remove Patch Med 01/12/21 09:00 Active 1 ea TRDERM DAILY Sodium Chloride 0.9% [Saline Flush] Med 01/11/21 10:48 Active 10 ml FLUSH ASDIRECTED PRN Vancomycin [Vancocin] 1 gm Med 01/11/21 20:00 Active Sodium Chloride 0.9% [Normal Saline (AdvBag)] 250 ml IV Q8H [id number] [Rocephin] 1 gm Med 01/12/21 11:00 Active Sodium Chloride 0.9% [Normal Saline] 100 ml IV Q24H hydrALAZINE [Apresoline] Med 01/11/21 11:37 Active 10 mg IVPUSH Q4H PRN Blood Culture x2 Reflex Set [OM.PC] Stat Oth 01/11/21 11:27 Ordered Peripheral IV Insertion Adult [OM.PC] Routine Oth 01/11/21 10:48 Ordered Resuscitation Status Routine Resus Stat 01/11/21 11:27 Ordered Medication Orders Acetaminophen (Acetaminophen 325 Mg Tab) 650 mg PO Q6H PRN PRN Reason: Pain (Mild 1-3)/fever Hydrocodone Bitart/Acetaminophen (Acetaminophen/Hydrocodone 325-5 Mg Tab) 1 tab PO Q6H PRN PRN Reason: Pain (moderate 4-6) Last Admin: 01/11/21 13:16 Dose: 1 tab Documented by: SAVANNAH Albuterol/Ipratropium (Albuterol/Ipratropium 3.0-0.5 Mg/3 Ml Neb Soln) 3 ml NEB Q4H PRN PRN Reason: Shortness Of Breath/wheezing Aspirin (Aspirin 81 Mg Tab.Ec) 81 mg PO DAILY [facility] Docusate Sodium (Docusate Sodium 100 Mg Cap) 100 mg PO BID PRN PRN Reason: Constipation Last Admin: 01/11/21 13:17 Dose: 100 mg Documented by: SAVANNAH Enoxaparin Sodium (Enoxaparin 40 Mg/0.4 Ml Syringe) 40 mg SUBCUT Q24H THOMAS Last Admin: 01/11/21 13:16 Dose: 40 mg Documented by: SAVANNAH Hydralazine HCl (Hydralazine 20 Mg/Ml Sdv) 10 mg IVPUSH Q4H PRN PRN Reason: Hypertension Lactated Ringer's (Ringers, Lactated) 1,000 mls @ 65 mls/hr IV ASDIRECTED [facility] Promethazine HCl 12.5 mg/ (Sodium Chloride) 50.5 mls @ 100 mls/hr IV Q6H PRN PRN Reason: Nausea/Vomiting Ceftriaxone Sodium 1 gm/ (Sodium Chloride) 100 mls @ 200 mls/hr IV Q24H THOMAS Vancomycin HCl 1 gm/ Sodium (Chloride) 250 mls @ 250 mls/hr IV Q8H [facility] Miscellaneous Information (Remove Patch *Nicotine Patch*) 1 ea TRDERM DAILY [facility] Morphine Sulfate (Morphine 2 Mg/Ml Syringe) 2 mg IVPUSH Q4H PRN PRN Reason: Pain (severe 7-10) Stop: 01/12/21 11:31 Nicotine (Nicotine 14 Mg/24 Hr Patch) 14 mg TRDERM DAILY [facility] Sodium Chloride (Sodium Chloride 0.9% 10 Ml Syringe) 10 ml FLUSH ASDIRECTED PRN PRN Reason: Keep Vein Open Last Admin: 01/11/21 11:10 Dose: 10 ml Documented by: BRIONNA Vancomycin HCl (Pharmacy To Dose - Vancomycin) 1 dose .XX ASDIRECTED PRN PRN Reason: RX TO DOSE VANCO Assessment/Plan Comment:: Patient is a 40-year-old female with a history of IV drug abuse (amphetamine) and a current smoker who was called back due to positive blood culture-gram- positive cocci. Patient came to the ER yesterday due to left forearm pain swelling and redness. Assessment and plan: Bacteremia -Blood culture showed gram-positive cocci from all 4 bottles -IV drug abuse -History of positive MRSA -Repeat blood culture -Denies sympathetic cardiac valves -Echocardiogram -Repeat MRSA screen -Vancomycin (pharmacy to dose) and ceftriaxone -IV fluid Acute cellulitis, left forearm -IV substance abuse -Ultrasound to rule out abscess -Blood culture -White blood cells 15.66 -Vancomycin and ceftriaxone Substance abuse -She admits that she injected amphetamine, last dose was 4 days ago -Urine drug screen -Aspirin -[employer] consult Tobacco abuse disorder -Smoking cessation counseling -Nicotine patch Chest pain -Has been having substernal chest pain for 4 days -Pain with breathing. No pain no breathing -Troponin -EKG no ST elevation -Chest CT -Aspirin DVT prophylaxis: Lovenox CODE STATUS: Full Disposition: 3 to 4 days - Mortality Measure Prognosis:: Good
[2021-01-11] MEDS: Morphine 2 MG/ML SYRINGE IVPUSH PRN ×3 (14:53→18:56)
--- NOTE | 2021-01-11 15:02 | CT ---
CT chest Technique: Multiple axial sections through the chest were obtained. Intravenous contrast was not utilized. Reconstructed coronal and sagittal images were obtained. Comparison: Prior chest x-ray of 01/10/21. Findings: Small focal areas of increased density are noted within the right middle lobe and within the left lung base. Small density is also noted within the left upper lobe anteriorly. Very minimal density is noted within both posterior lung bases. Lungs otherwise are clear. Visualized upper abdominal structures show prior cholecystectomy. No additional abnormality is appreciated. No pericardial thickening is seen. Thoracic aorta shows no aneurysm. Mediastinal and hilar regions show no adenopathy. Window settings were reviewed which show no acute osseous abnormality. Impression: 1. Patchy areas of increased density within the right middle lobe and within the left lung base. Small density within the left upper lung is seen. Slight density within both posterior lungs is also noted. None of these findings are definitely appreciated on prior chest x-ray. Please correlate if patient has infectious symptoms for this to represent small areas of pneumonia. 2. Prior cholecystectomy. 3. Nothing acute is otherwise seen. Diagnostic code #3
[2021-01-11] MEDS: Aspirin 81 MG Tab.EC PO SCH (15:08)
[2021-01-11] MEDS: Nicotine 14 MG/24 Hr Patch TRDERM SCH (15:08)
--- NOTE | 2021-01-11 15:22 | US ---
Left upper extremity ultrasound: Multiple real-time images were obtained superficially within the left forearm as well as slightly above the left elbow. Comparison: No prior venous imaging is available. There is evidence of thrombus within the left cephalic vein. Slight soft tissue edema is also noted. This thrombus appears to be developing fairly acute. Impression: 1. Acute developing thrombus within the left cephalic vein. Mild subcutaneous edema is also noted. Note: With venous thrombosis being seen, difficult to exclude nonvisualized pulmonary embolism as etiology for pulmonary parenchymal change. Diagnostic code #5
[2021-01-11] MEDS ORDERED: cefTRIAXone 1 GM in Sodium Chloride 0.9% 100 ML IV ONE (15:32)
[2021-01-11] MEDS ORDERED: Iopamidol 755 Mg/ML 100 ML Bottle IVPUSH ONE (16:10)
[2021-01-11] MEDS ORDERED: Sodium Chloride 0.9% 100 ML IV SCH (16:15)
[2021-01-11] MEDS ORDERED: Enoxaparin 30 MG/0.3 ML Syringe SUBCUT ONE (16:30)
--- NOTE | 2021-01-11 16:51 | CT ---
Chest CT Technique: Multiple axial sections through the chest were obtained. Intravenous contrast was utilized. Study has been performed as a pulmonary angiogram protocol. Comparison: Prior noncontrast chest CT study performed on the same day (2:39 PM). Findings: Pulmonary arteries are well opacified. No filling defects are seen to indicate pulmonary embolism. Thoracic aorta shows no aneurysm. Mediastinum and hilar regions show no adenopathy. No axillary adenopathy is appreciated. Visualized upper abdominal structures show no discrete abnormality. Patchy areas of increased density are again seen within the lingula, right middle lobe, left lower lung as well as posteriorly within both lower lungs. Slight area of increased density is also noted within the more superior anterior left upper lung. No pleural effusions are seen. No acute osseous abnormality is appreciated. Impression: 1. No findings of pulmonary embolism. 2. Areas of pulmonary density remain as seen on noncontrast chest CT study. These presumably are due to multiple areas of small pneumonia. Diagnostic code #3
[2021-01-11] MEDS: Lactated Ringers 1,000 ML IV SCH (17:55)
[2021-01-11] MEDS ORDERED: Enoxaparin 80 MG/0.8 ML Syringe SUBCUT SCH (21:00)
[2021-01-11] MEDS ORDERED: Enoxaparin 80 MG/0.8 ML Syringe SUBCUT ONE (23:00)
[2021-01-12] MEDS: Acetaminophen/HYDROcodone 325-5 MG Tab PO PRN ×4 (01:37→22:31)
[2021-01-12] MEDS: Morphine 2 MG/ML SYRINGE IVPUSH PRN ×4 (01:38→22:30)
[2021-01-12] MEDS: Enoxaparin 40 MG/0.4 ML Syringe SUBCUT SCH (08:23)
[2021-01-12] MEDS: Remove Patch *NICOTINE PATCH TRDERM SCH (08:24)
[2021-01-12] MEDS: Nicotine 14 MG/24 Hr Patch TRDERM SCH (08:24)
[2021-01-12] MEDS: Aspirin 81 MG Tab.EC PO SCH (08:24)
[2021-01-12] MEDS: cefTRIAXone 2 GM in Sodium Chloride 0.9% 100 ML IV SCH (08:26)
--- NOTE | 2021-01-12 08:49 | PCM.PN ---
- General Info Date of Service: 01/12/21 Admission Dx/Problem (Free Text): Admission Diagnosis/Problem Admission Diagnosis/Problem Cellulitis Left anticubital fossa, IVDU Subjective Update: The patient is a 40-year-old lady who was admitted yesterday afternoon with a diagnosis of possible sepsis with shortness of breath and abscess of her left antecubital fossa. The patient has a history of IV drug abuse. She also had visited the emergency department 2 days ago and blood cultures were taken and are currently pending. Suspected staph. Today the patient says that she is still somewhat short of breath. She has been tolerating her diet. She was kept n.p.o. for 2D echocardiogram. The patient has no other complaints today. Functional Status: Reports: Pain Controlled Pain Score: 4 - Review of Systems General: Reports: No Symptoms HEENT: Reports: No Symptoms Pulmonary: Reports: No Symptoms Cardiovascular: Reports: No Symptoms Gastrointestinal: Reports: No Symptoms Genitourinary: Reports: No Symptoms Musculoskeletal: Reports: Arm Pain, Other (Swelling with cellulitis) Skin: Reports: No Symptoms Neurological: Reports: No Symptoms Psychiatric: Reports: No Symptoms - Patient Data Vitals - Most Recent: Last Vital Signs Temp 36.8 C 01/12/21 08:21 Pulse 94 01/12/21 08:21 Resp 18 01/12/21 08:21 BP 111/59 L 01/12/21 08:21 Pulse Ox 100 01/12/21 08:21 Weight - Most Recent: 67.132 kg I&O - Last 24 Hours: Intake & Output 01/11/21 01/12/21 01/12/21 22:59 06:59 14:59 Intake Total 1280 1412 Output Total 400 775 Balance 880 637 Lab Results Last 24 Hours: Laboratory Results - last 24 hr 01/11/21 01/11/21 01/11/21 Range/Units 10:38 10:59 10:59 WBC 15.66 H (3.98-10.04) K/mm3 RBC 4.64 (3.98-5.22) M/mm3 Hgb 14.3 (11.2-15.7) gm/dl Hct 41.7 (34.1-44.9) % MCV 89.9 (79.4-94.8) fl MCH 30.8 (25.6-32.2) pg MCHC 34.3 (32.2-35.5) g/dl RDW Std Deviation 40.4 (36.4-46.3) fL Plt Count 173 L (182-369) K/mm3 MPV 9.6 (9.4-12.3) fl Neut % (Auto) 79.8 H (34.0-71.1) % Lymph % (Auto) 10.4 L (19.3-51.7) % [place] % (Auto) 8.6 (4.7-12.5) % Eos % (Auto) 0.7 (0.7-5.8) Baso % (Auto) 0.1 (0.1-1.2) % Neut # (Auto) 12.49 H (1.56-6.13) K/mm3 Lymph # (Auto) 1.63 (1.18-3.74) K/mm3 [place] # (Auto) 1.35 H (0.24-0.36) K/mm3 Eos # (Auto) 0.11 (0.04-0.36) K/mm3 Baso # (Auto) 0.02 (0.01-0.08) K/mm3 Manual Slide Review Normal smear Sodium 133 L (136-145) mEq/L Potassium 4.0 (3.5-5.1) mEq/L Chloride 98 (98-107) mEq/L Carbon Dioxide 23 (21-32) mEq/L Anion Gap 16.0 H (5-15) BUN 8 (7-18) mg/dL Creatinine 0.9 (0.55-1.02) mg/dL Est Cr Clr Drug Dosing 80.80 mL/min Estimated GFR (MDRD) > 60 (>60) mL/min BUN/Creatinine Ratio 8.9 L (14-18) Glucose 116 H (70-99) mg/dL Lactic Acid (0.4-2.0) mmol/L Calcium 8.8 (8.5-10.1) mg/dL Total Bilirubin 0.6 (0.2-1.0) mg/dL AST 19 (15-37) U/L ALT 47 (14-59) U/L Alkaline Phosphatase 52 (46-116) U/L Troponin I (0.00-0.056) ng/mL C-Reactive Protein 11.8 H* (<1.0) mg/dL Total Protein 7.6 (6.4-8.2) g/dl Albumin 3.1 L (3.4-5.0) g/dl Globulin 4.5 gm/dL Albumin/Globulin Ratio 0.7 L (1-2) Urine HCG, Qual (NEGATIVE) SARS-CoV-2 RNA (ANALISA) Negative (NEGATIVE) MRSA (PCR) 01/11/21 01/11/21 01/11/21 Range/Units 10:59 10:59 14:22 WBC (3.98-10.04) K/mm3 RBC (3.98-5.22) M/mm3 Hgb (11.2-15.7) gm/dl Hct (34.1-44.9) % MCV (79.4-94.8) fl MCH (25.6-32.2) pg MCHC (32.2-35.5) g/dl RDW Std Deviation (36.4-46.3) fL Plt Count (182-369) K/mm3 MPV (9.4-12.3) fl Neut % (Auto) (34.0-71.1) % Lymph % (Auto) (19.3-51.7) % [place] % (Auto) (4.7-12.5) % Eos % (Auto) (0.7-5.8) Baso % (Auto) (0.1-1.2) % Neut # (Auto) (1.56-6.13) K/mm3 Lymph # (Auto) (1.18-3.74) K/mm3 [place] # (Auto) (0.24-0.36) K/mm3 Eos # (Auto) (0.04-0.36) K/mm3 Baso # (Auto) (0.01-0.08) K/mm3 Manual Slide Review Sodium (136-145) mEq/L Potassium (3.5-5.1) mEq/L Chloride (98-107) mEq/L Carbon Dioxide (21-32) mEq/L Anion Gap (5-15) BUN (7-18) mg/dL Creatinine (0.55-1.02) mg/dL Est Cr Clr Drug Dosing mL/min Estimated GFR (MDRD) (>60) mL/min BUN/Creatinine Ratio (14-18) Glucose (70-99) mg/dL Lactic Acid 1.1 (0.4-2.0) mmol/L Calcium (8.5-10.1) mg/dL Total Bilirubin (0.2-1.0) mg/dL AST (15-37) U/L ALT (14-59) U/L Alkaline Phosphatase (46-116) U/L Troponin I < 0.017 (0.00-0.056) ng/mL C-Reactive Protein (<1.0) mg/dL Total Protein (6.4-8.2) g/dl Albumin (3.4-5.0) g/dl Globulin gm/dL Albumin/Globulin Ratio (1-2) Urine HCG, Qual Negative (NEGATIVE) SARS-CoV-2 RNA (ANALISA) (NEGATIVE) MRSA (PCR) 01/11/21 01/11/21 01/12/21 Range/Units 14:30 19:11 01:25 WBC (3.98-10.04) K/mm3 RBC (3.98-5.22) M/mm3 Hgb (11.2-15.7) gm/dl Hct (34.1-44.9) % MCV (79.4-94.8) fl MCH (25.6-32.2) pg MCHC (32.2-35.5) g/dl RDW Std Deviation (36.4-46.3) fL Plt Count (182-369) K/mm3 MPV (9.4-12.3) fl Neut % (Auto) (34.0-71.1) % Lymph % (Auto) (19.3-51.7) % [place] % (Auto) (4.7-12.5) % Eos % (Auto) (0.7-5.8) Baso % (Auto) (0.1-1.2) % Neut # (Auto) (1.56-6.13) K/mm3 Lymph # (Auto) (1.18-3.74) K/mm3 [place] # (Auto) (0.24-0.36) K/mm3 Eos # (Auto) (0.04-0.36) K/mm3 Baso # (Auto) (0.01-0.08) K/mm3 Manual Slide Review Sodium (136-145) mEq/L Potassium (3.5-5.1) mEq/L Chloride (98-107) mEq/L Carbon Dioxide (21-32) mEq/L Anion Gap (5-15) BUN (7-18) mg/dL Creatinine (0.55-1.02) mg/dL Est Cr Clr Drug Dosing mL/min Estimated GFR (MDRD) (>60) mL/min BUN/Creatinine Ratio (14-18) Glucose (70-99) mg/dL Lactic Acid (0.4-2.0) mmol/L Calcium (8.5-10.1) mg/dL Total Bilirubin (0.2-1.0) mg/dL AST (15-37) U/L ALT (14-59) U/L Alkaline Phosphatase (46-116) U/L Troponin I < 0.017 < 0.017 (0.00-0.056) ng/mL C-Reactive Protein (<1.0) mg/dL Total Protein (6.4-8.2) g/dl Albumin (3.4-5.0) g/dl Globulin gm/dL Albumin/Globulin Ratio (1-2) Urine HCG, Qual (NEGATIVE) SARS-CoV-2 RNA (ANALISA) (NEGATIVE) MRSA (PCR) Negative 01/12/21 01/12/21 Range/Units 04:39 04:39 WBC 12.17 H (3.98-10.04) K/mm3 RBC 3.96 L (3.98-5.22) M/mm3 Hgb 12.4 D (11.2-15.7) gm/dl Hct 36.0 (34.1-44.9) % MCV 90.9 (79.4-94.8) fl MCH 31.3 (25.6-32.2) pg MCHC 34.4 (32.2-35.5) g/dl RDW Std Deviation 41.6 (36.4-46.3) fL Plt Count 158 L (182-369) K/mm3 MPV 9.4 (9.4-12.3) fl Neut % (Auto) 71.1 (34.0-71.1) % Lymph % (Auto) 16.9 L (19.3-51.7) % [place] % (Auto) 9.9 (4.7-12.5) % Eos % (Auto) 1.7 (0.7-5.8) Baso % (Auto) 0.2 (0.1-1.2) % Neut # (Auto) 8.65 H (1.56-6.13) K/mm3 Lymph # (Auto) 2.06 (1.18-3.74) K/mm3 [place] # (Auto) 1.20 H (0.24-0.36) K/mm3 Eos # (Auto) 0.21 (0.04-0.36) K/mm3 Baso # (Auto) 0.02 (0.01-0.08) K/mm3 Manual Slide Review Sodium 137 (136-145) mEq/L Potassium 3.9 (3.5-5.1) mEq/L Chloride 103 (98-107) mEq/L Carbon Dioxide 22 (21-32) mEq/L Anion Gap 15.9 H (5-15) BUN 7 (7-18) mg/dL Creatinine 0.7 (0.55-1.02) mg/dL Est Cr Clr Drug Dosing 92.25 mL/min Estimated GFR (MDRD) > 60 (>60) mL/min BUN/Creatinine Ratio 10.0 L (14-18) Glucose 112 H (70-99) mg/dL Lactic Acid (0.4-2.0) mmol/L Calcium 8.3 L (8.5-10.1) mg/dL Total Bilirubin 0.4 (0.2-1.0) mg/dL AST 15 (15-37) U/L ALT 35 (14-59) U/L Alkaline Phosphatase 41 L (46-116) U/L Troponin I (0.00-0.056) ng/mL C-Reactive Protein (<1.0) mg/dL Total Protein 6.3 L (6.4-8.2) g/dl Albumin 2.4 L (3.4-5.0) g/dl Globulin 3.9 gm/dL Albumin/Globulin Ratio 0.6 L (1-2) Urine HCG, Qual (NEGATIVE) SARS-CoV-2 RNA (ANALISA) (NEGATIVE) MRSA (PCR) Med Orders - Current: Current Medications Acetaminophen (Acetaminophen 325 Mg Tab) 650 mg PO Q6H PRN PRN Reason: Pain (Mild 1-3)/fever Hydrocodone Bitart/Acetaminophen (Acetaminophen/Hydrocodone 325-5 Mg Tab) 1 tab PO Q6H PRN PRN Reason: Pain (moderate 4-6) Last Admin: 01/12/21 01:37 Dose: 1 tab Documented by: Albuterol/Ipratropium (Albuterol/Ipratropium 3.0-0.5 Mg/3 Ml Neb Soln) 3 ml NEB Q4H PRN PRN Reason: Shortness Of Breath/wheezing Aspirin (Aspirin 81 Mg Tab.Ec) 81 mg PO DAILY [facility] Last Admin: 01/12/21 08:24 Dose: 81 mg Documented by: Docusate Sodium (Docusate Sodium 100 Mg Cap) 100 mg PO BID PRN PRN Reason: Constipation Last Admin: 01/11/21 13:17 Dose: 100 mg Documented by: Enoxaparin Sodium (Enoxaparin 40 Mg/0.4 Ml Syringe) 40 mg SUBCUT DAILY [facility] Last Admin: 01/12/21 08:23 Dose: 40 mg Documented by: Hydralazine HCl (Hydralazine 20 Mg/Ml Sdv) 10 mg IVPUSH Q4H PRN PRN Reason: Hypertension Lactated Ringer's (Ringers, Lactated) 1,000 mls @ 65 mls/hr IV ASDIRECTED [facility] Last Admin: 01/11/21 17:55 Dose: 65 mls/hr Documented by: Promethazine HCl 12.5 mg/ (Sodium Chloride) 50.5 mls @ 100 mls/hr IV Q6H PRN PRN Reason: Nausea/Vomiting Vancomycin HCl 1 gm/ Sodium (Chloride) 250 mls @ 250 mls/hr IV Q8H [facility] Last Admin: 01/12/21 03:43 Dose: 250 mls/hr Documented by: Ceftriaxone Sodium 2 gm/ (Sodium Chloride) 100 mls @ 200 mls/hr IV Q24H [facility] Last Admin: 01/12/21 08:26 Dose: 200 mls/hr Documented by: Miscellaneous Information (Remove Patch *Nicotine Patch*) 1 ea TRDERM DAILY [facility] Last Admin: 01/12/21 08:24 Dose: 1 ea Documented by: Morphine Sulfate (Morphine 2 Mg/Ml Syringe) 2 mg IVPUSH Q2H PRN PRN Reason: Pain Last Admin: 01/12/21 01:38 Dose: 2 mg Documented by: Nicotine (Nicotine 14 Mg/24 Hr Patch) 14 mg TRDERM DAILY [facility] Last Admin: 01/12/21 08:24 Dose: 14 mg Documented by: Sodium Chloride (Sodium Chloride 0.9% 10 Ml Syringe) 10 ml FLUSH ASDIRECTED PRN PRN Reason: Keep Vein Open Last Admin: 01/11/21 16:34 Dose: 10 ml Documented by: Vancomycin HCl (Pharmacy To Dose - Vancomycin) 1 dose .XX ASDIRECTED PRN PRN Reason: RX TO DOSE VANCO Discontinued Medications Enoxaparin Sodium (Enoxaparin 40 Mg/0.4 Ml Syringe) 40 mg SUBCUT Q24H [facility] Last Admin: 01/11/21 13:16 Dose: 40 mg Documented by: Enoxaparin Sodium (Enoxaparin 80 Mg/0.8 Ml Syringe) 70 mg SUBCUT BID THOMAS Enoxaparin Sodium (Enoxaparin 30 Mg/0.3 Ml Syringe) 30 mg SUBCUT ONETIME ONE Stop: 01/11/21 16:31 Last Admin: 01/11/21 16:48 Dose: 30 mg Documented by: Enoxaparin Sodium (Enoxaparin 80 Mg/0.8 Ml Syringe) 70 mg SUBCUT BID THOMAS Enoxaparin Sodium (Enoxaparin 80 Mg/0.8 Ml Syringe) 70 mg SUBCUT ONETIME ONE Stop: 01/11/21 23:01 Enoxaparin Sodium (Enoxaparin 80 Mg/0.8 Ml Syringe) 70 mg SUBCUT BID [facility] Hydromorphone HCl (Hydromorphone 0.5 Mg/0.5 Ml Syringe) 0.5 mg IVPUSH ONETIME ONE Stop: 01/11/21 11:07 Last Admin: 01/11/21 11:09 Dose: 0.5 mg Documented by: Sodium Chloride (Normal Saline) 1,000 mls @ 150 mls/hr IV ASDIRECTED [facility] Last Admin: 01/11/21 11:07 Dose: 150 mls/hr Documented by: Ceftriaxone Sodium 2 gm/ (Sodium Chloride) 100 mls @ 200 mls/hr IV ONETIME ONE Stop: 01/11/21 11:18 Last Admin: 01/11/21 11:07 Dose: 200 mls/hr Documented by: Vancomycin HCl 1.5 gm/ Sodium (Chloride) 250 mls @ 250 mls/hr IV ONETIME ONE Stop: 01/11/21 11:52 Last Admin: 01/11/21 11:51 Dose: 250 mls/hr Documented by: Ceftriaxone Sodium 1 gm/ (Sodium Chloride) 100 mls @ 200 mls/hr IV Q24H [facility] Vancomycin HCl 1 gm/ Sodium (Chloride) 250 mls @ 250 mls/hr IV Q12H [facility] Last Admin: 01/11/21 11:45 Dose: 250 mls/hr Documented by: Ceftriaxone Sodium 1 gm/ (Sodium Chloride) 100 mls @ 200 mls/hr IV ONETIME ONE Stop: 01/11/21 16:01 Last Admin: 01/11/21 18:57 Dose: Not Given Documented by: Sodium Chloride (Normal Saline) 100 mls @ 75 mls/hr IV ASDIRECTED [facility] Last Admin: 01/11/21 16:34 Dose: 75 mls/hr Documented by: Iopamidol (Iopamidol 755 Mg/Ml 100 Ml Bottle) 100 ml IVPUSH ONETIME ONE Stop: 01/11/21 16:11 Last Admin: 01/11/21 16:34 Dose: 100 ml Documented by: Morphine Sulfate (Morphine 2 Mg/Ml Syringe) 2 mg IVPUSH Q4H PRN PRN Reason: Pain (severe 7-10) Stop: 01/12/21 18:49 Last Admin: 01/11/21 14:53 Dose: 2 mg Documented by: - Exam Quality Assessment: DVT Prophylaxis. No: Supplemental Oxygen General: Alert, Oriented HEENT: Pupils Equal, Pupils Reactive, EOMI, Mucous Membr. Moist/[place] Neck: Supple, Trachea Midline Lungs: Clear to Auscultation, Normal Respiratory Effort Cardiovascular: Regular Rate, Regular Rhythm GI/Abdominal Exam: Normal Bowel Sounds, Soft, Non-Tender, No Distention (Female) Exam: Deferred Back Exam: Normal Inspection, Full Range of Motion Extremities: Redness (Left arm) Skin: Warm, Dry, Other (Area of cellulitis left antecubital fossa down to medial forearm.) Neurological: No New Focal Deficit Psy/Mental Status: Alert, Normal Affect, Normal Mood - Patient Data Lab Results Last 24 hrs: Laboratory Results - last 24 hr 01/11/21 01/11/21 01/11/21 Range/Units 10:38 10:59 10:59 WBC 15.66 H (3.98-10.04) K/mm3 RBC 4.64 (3.98-5.22) M/mm3 Hgb 14.3 (11.2-15.7) gm/dl Hct 41.7 (34.1-44.9) % MCV 89.9 (79.4-94.8) fl MCH 30.8 (25.6-32.2) pg MCHC 34.3 (32.2-35.5) g/dl RDW Std Deviation 40.4 (36.4-46.3) fL Plt Count 173 L (182-369) K/mm3 MPV 9.6 (9.4-12.3) fl Neut % (Auto) 79.8 H (34.0-71.1) % Lymph % (Auto) 10.4 L (19.3-51.7) % [place] % (Auto) 8.6 (4.7-12.5) % Eos % (Auto) 0.7 (0.7-5.8) Baso % (Auto) 0.1 (0.1-1.2) % Neut # (Auto) 12.49 H (1.56-6.13) K/mm3 Lymph # (Auto) 1.63 (1.18-3.74) K/mm3 [place] # (Auto) 1.35 H (0.24-0.36) K/mm3 Eos # (Auto) 0.11 (0.04-0.36) K/mm3 Baso # (Auto) 0.02 (0.01-0.08) K/mm3 Manual Slide Review Normal smear Sodium 133 L (136-145) mEq/L Potassium 4.0 (3.5-5.1) mEq/L Chloride 98 (98-107) mEq/L Carbon Dioxide 23 (21-32) mEq/L Anion Gap 16.0 H (5-15) BUN 8 (7-18) mg/dL Creatinine 0.9 (0.55-1.02) mg/dL Est Cr Clr Drug Dosing 80.80 mL/min Estimated GFR (MDRD) > 60 (>60) mL/min BUN/Creatinine Ratio 8.9 L (14-18) Glucose 116 H (70-99) mg/dL Lactic Acid (0.4-2.0) mmol/L Calcium 8.8 (8.5-10.1) mg/dL Total Bilirubin 0.6 (0.2-1.0) mg/dL AST 19 (15-37) U/L ALT 47 (14-59) U/L Alkaline Phosphatase 52 (46-116) U/L Troponin I (0.00-0.056) ng/mL C-Reactive Protein 11.8 H* (<1.0) mg/dL Total Protein 7.6 (6.4-8.2) g/dl Albumin 3.1 L (3.4-5.0) g/dl Globulin 4.5 gm/dL Albumin/Globulin Ratio 0.7 L (1-2) Urine HCG, Qual (NEGATIVE) SARS-CoV-2 RNA (ANALISA) Negative (NEGATIVE) MRSA (PCR) 01/11/21 01/11/21 01/11/21 Range/Units 10:59 10:59 14:22 WBC (3.98-10.04) K/mm3 RBC (3.98-5.22) M/mm3 Hgb (11.2-15.7) gm/dl Hct (34.1-44.9) % MCV (79.4-94.8) fl MCH (25.6-32.2) pg MCHC (32.2-35.5) g/dl RDW Std Deviation (36.4-46.3) fL Plt Count (182-369) K/mm3 MPV (9.4-12.3) fl Neut % (Auto) (34.0-71.1) % Lymph % (Auto) (19.3-51.7) % [place] % (Auto) (4.7-12.5) % Eos % (Auto) (0.7-5.8) Baso % (Auto) (0.1-1.2) % Neut # (Auto) (1.56-6.13) K/mm3 Lymph # (Auto) (1.18-3.74) K/mm3 [place] # (Auto) (0.24-0.36) K/mm3 Eos # (Auto) (0.04-0.36) K/mm3 Baso # (Auto) (0.01-0.08) K/mm3 Manual Slide Review Sodium (136-145) mEq/L Potassium (3.5-5.1) mEq/L Chloride (98-107) mEq/L Carbon Dioxide (21-32) mEq/L Anion Gap (5-15) BUN (7-18) mg/dL Creatinine (0.55-1.02) mg/dL Est Cr Clr Drug Dosing mL/min Estimated GFR (MDRD) (>60) mL/min BUN/Creatinine Ratio (14-18) Glucose (70-99) mg/dL Lactic Acid 1.1 (0.4-2.0) mmol/L Calcium (8.5-10.1) mg/dL Total Bilirubin (0.2-1.0) mg/dL AST (15-37) U/L ALT (14-59) U/L Alkaline Phosphatase (46-116) U/L Troponin I < 0.017 (0.00-0.056) ng/mL C-Reactive Protein (<1.0) mg/dL Total Protein (6.4-8.2) g/dl Albumin (3.4-5.0) g/dl Globulin gm/dL Albumin/Globulin Ratio (1-2) Urine HCG, Qual Negative (NEGATIVE) SARS-CoV-2 RNA (ANALISA) (NEGATIVE) MRSA (PCR) 01/11/21 01/11/21 01/12/21 Range/Units 14:30 19:11 01:25 WBC (3.98-10.04) K/mm3 RBC (3.98-5.22) M/mm3 Hgb (11.2-15.7) gm/dl Hct (34.1-44.9) % MCV (79.4-94.8) fl MCH (25.6-32.2) pg MCHC (32.2-35.5) g/dl RDW Std Deviation (36.4-46.3) fL Plt Count (182-369) K/mm3 MPV (9.4-12.3) fl Neut % (Auto) (34.0-71.1) % Lymph % (Auto) (19.3-51.7) % [place] % (Auto) (4.7-12.5) % Eos % (Auto) (0.7-5.8) Baso % (Auto) (0.1-1.2) % Neut # (Auto) (1.56-6.13) K/mm3 Lymph # (Auto) (1.18-3.74) K/mm3 [place] # (Auto) (0.24-0.36) K/mm3 Eos # (Auto) (0.04-0.36) K/mm3 Baso # (Auto) (0.01-0.08) K/mm3 Manual Slide Review Sodium (136-145) mEq/L Potassium (3.5-5.1) mEq/L Chloride (98-107) mEq/L Carbon Dioxide (21-32) mEq/L Anion Gap (5-15) BUN (7-18) mg/dL Creatinine (0.55-1.02) mg/dL Est Cr Clr Drug Dosing mL/min Estimated GFR (MDRD) (>60) mL/min BUN/Creatinine Ratio (14-18) Glucose (70-99) mg/dL Lactic Acid (0.4-2.0) mmol/L Calcium (8.5-10.1) mg/dL Total Bilirubin (0.2-1.0) mg/dL AST (15-37) U/L ALT (14-59) U/L Alkaline Phosphatase (46-116) U/L Troponin I < 0.017 < 0.017 (0.00-0.056) ng/mL C-Reactive Protein (<1.0) mg/dL Total Protein (6.4-8.2) g/dl Albumin (3.4-5.0) g/dl Globulin gm/dL Albumin/Globulin Ratio (1-2) Urine HCG, Qual (NEGATIVE) SARS-CoV-2 RNA (ANALISA) (NEGATIVE) MRSA (PCR) Negative 01/12/21 01/12/21 Range/Units 04:39 04:39 WBC 12.17 H (3.98-10.04) K/mm3 RBC 3.96 L (3.98-5.22) M/mm3 Hgb 12.4 D (11.2-15.7) gm/dl Hct 36.0 (34.1-44.9) % MCV 90.9 (79.4-94.8) fl MCH 31.3 (25.6-32.2) pg MCHC 34.4 (32.2-35.5) g/dl RDW Std Deviation 41.6 (36.4-46.3) fL Plt Count 158 L (182-369) K/mm3 MPV 9.4 (9.4-12.3) fl Neut % (Auto) 71.1 (34.0-71.1) % Lymph % (Auto) 16.9 L (19.3-51.7) % [place] % (Auto) 9.9 (4.7-12.5) % Eos % (Auto) 1.7 (0.7-5.8) Baso % (Auto) 0.2 (0.1-1.2) % Neut # (Auto) 8.65 H (1.56-6.13) K/mm3 Lymph # (Auto) 2.06 (1.18-3.74) K/mm3 [place] # (Auto) 1.20 H (0.24-0.36) K/mm3 Eos # (Auto) 0.21 (0.04-0.36) K/mm3 Baso # (Auto) 0.02 (0.01-0.08) K/mm3 Manual Slide Review Sodium 137 (136-145) mEq/L Potassium 3.9 (3.5-5.1) mEq/L Chloride 103 (98-107) mEq/L Carbon Dioxide 22 (21-32) mEq/L Anion Gap 15.9 H (5-15) BUN 7 (7-18) mg/dL Creatinine 0.7 (0.55-1.02) mg/dL Est Cr Clr Drug Dosing 92.25 mL/min Estimated GFR (MDRD) > 60 (>60) mL/min BUN/Creatinine Ratio 10.0 L (14-18) Glucose 112 H (70-99) mg/dL Lactic Acid (0.4-2.0) mmol/L Calcium 8.3 L (8.5-10.1) mg/dL Total Bilirubin 0.4 (0.2-1.0) mg/dL AST 15 (15-37) U/L ALT 35 (14-59) U/L Alkaline Phosphatase 41 L (46-116) U/L Troponin I (0.00-0.056) ng/mL C-Reactive Protein (<1.0) mg/dL Total Protein 6.3 L (6.4-8.2) g/dl Albumin 2.4 L (3.4-5.0) g/dl Globulin 3.9 gm/dL Albumin/Globulin Ratio 0.6 L (1-2) Urine HCG, Qual (NEGATIVE) SARS-CoV-2 RNA (ANALISA) (NEGATIVE) MRSA (PCR) Result Diagrams: 01/12/21 04:39 01/12/21 04:39 Sepsis Event Note - Evaluation Sepsis Screening Result: Sepsis Risk Current Stage of Sepsis: Ruled Out Reason for Ruling Out Sepsis: The patient is afebrile. Blood pressure has been normal. Lactic acid is normal. The patient has not required oxygen. - Focused Exam Vital Signs: Vital Signs Temp Pulse Resp BP Pulse Ox 01/12/21 08:21 36.8 C 94 18 111/59 L 100 01/12/21 03:32 36.9 C 91 16 117/64 96 01/12/21 00:09 36.7 C 87 16 112/61 96 - Problem List & Annotations (1) Cellulitis of left arm SNOMED Code(s): 639721273 Code(s): L03.114 - CELLULITIS OF LEFT UPPER LIMB Status: Acute Priority: High Current Visit: Yes (2) IVDU (intravenous drug user) SNOMED Code(s): 581208735 Code(s): F19.90 - OTHER PSYCHOACTIVE SUBSTANCE USE, UNSPECIFIED, UNCOMPLICATED Status: Chronic Priority: High Current Visit: Yes (3) Bacteremia due to Staphylococcus aureus SNOMED Code(s): 814708590 Code(s): R78.81 - BACTEREMIA; B95.61 - METHICILLIN SUSCEP STAPH INFCT CAUSING DIS CLASSD [id number] Status: Acute Current Visit: Yes - Problem List Review Problem List Initiated/Reviewed/Updated: Yes - Plan Plan:: Patient is a 40-year-old female with a history of IV drug abuse (amphetamine) and a current smoker who was called back due to positive blood [id number] cocci. Patient came to the ER yesterday due to left forearm pain swelling and redness. Assessment and plan: Bacteremia -Blood culture showed gram-positive cocci from all 4 bottles -IV drug abuse -History of positive MRSA -Repeat blood culture -Denies sympathetic cardiac valves -Echocardiogram -Repeat MRSA screen -Vancomycin (pharmacy to dose) and ceftriaxone -IV fluid Acute cellulitis, left forearm -IV substance abuse -Ultrasound to rule out abscess -Blood culture -White blood cells 15.66 -Vancomycin and ceftriaxone Substance abuse -She admits that she injected amphetamine, last dose was 4 days ago -Urine drug screen -Aspirin -sheet metal worker helper consult Tobacco abuse disorder -Smoking cessation counseling -Nicotine patch Chest pain -Has been having substernal chest pain for 4 days -Pain with breathing. No pain no breathing -Troponin -EKG no ST elevation -Chest CT -Aspirin DVT prophylaxis: Lovenox CODE STATUS: Full Disposition: 3 to 4 days 01/12/2021 Patient is a 40-year-old lady who has a history of IV drug use and admits to self injecting drugs of abuse into her left arm. The patient rapidly developed abscess. Patient does have a history of MRSA and cultures are currently pending. The patient also has had blood cultures that have been positive for gram-positive staph aureus. The patient therefore will be treated for presumptive MRSA. We will continue with ceftriaxone and vancomycin. We will de-escalate antibiotics as cultures indicate. Patient's diet has been advanced. She has been encouraged to ambulate. She is also on DVT prophylaxis with the use of enoxaparin 40 mg twice a day. Sepsis has been ruled out. Repeat laboratory studies have been ordered. I have also ordered a chest x-ray for the morning. The patient should be appropriate for discharge in 1 to 2 days. The patient says that she is giving up IV drugs.
[2021-01-12] MEDS ORDERED: Enoxaparin 80 MG/0.8 ML Syringe SUBCUT SCH ×2 (09:00)
[2021-01-12] MEDS: Lactated Ringers 1,000 ML IV SCH (10:43)
[2021-01-12] MEDS ORDERED: cefTRIAXone 1 GM in Sodium Chloride 0.9% 100 ML IV SCH (11:00)
[2021-01-12] MEDS: Vancomycin 1 GM, Vancomycin 250 MG in Sodium Chloride 0.9% 250 ML IV SCH ×2 (12:46→19:03)
[2021-01-13] MEDS: Morphine 2 MG/ML SYRINGE IVPUSH PRN ×6 (03:28→20:35)
[2021-01-13] MEDS: Vancomycin 1 GM, Vancomycin 250 MG in Sodium Chloride 0.9% 250 ML IV SCH (03:33)
[2021-01-13] MEDS: Acetaminophen/HYDROcodone 325-5 MG Tab PO PRN ×3 (05:32→18:07)
--- NOTE | 2021-01-13 07:35 | PCM.PN ---
- General Info Date of Service: 01/13/21 Admission Dx/Problem (Free Text): Cellulitis from injection site left antecubital fossa, MRSA bacteremia, bibasilar pneumonia likely MRSA. Subjective Update: The patient is a 40-year-old lady who was admitted 2 days ago secondary to cellulitis of her left antecubital fossa. The patient has reported that this is from IV drug injection site. Today the patient says that she is still having pain in her arm. She is also having mild left-sided chest pain. Patient has been tolerating her diet. Has denied any fever or chills. Functional Status: Reports: Pain Controlled, Tolerating Diet - Review of Systems General: Reports: Fatigue HEENT: Reports: No Symptoms Pulmonary: Reports: No Symptoms Cardiovascular: Reports: No Symptoms Gastrointestinal: Reports: No Symptoms Genitourinary: Reports: No Symptoms Musculoskeletal: Reports: Arm Pain (With swelling due to cellulitis) Skin: Reports: Other (Cellulitis) Neurological: Reports: No Symptoms Psychiatric: Reports: No Symptoms - Patient Data Vitals - Most Recent: Last Vital Signs Temp 36.8 C 01/13/21 03:32 Pulse 90 01/13/21 03:32 Resp 16 01/13/21 00:52 BP 124/72 01/13/21 03:32 Pulse Ox 99 01/13/21 03:32 Weight - Most Recent: 66.814 kg I&O - Last 24 Hours: Intake & Output 01/12/21 01/13/21 01/13/21 22:59 06:59 14:59 Intake Total 1547 1750 Output Total 500 1850 Balance 1047 -100 Lab Results Last 24 Hours: Laboratory Results - last 24 hr 01/12/21 01/13/21 01/13/21 Range/Units 11:00 05:15 05:15 WBC 10.36 H (3.98-10.04) K/mm3 RBC 4.23 (3.98-5.22) M/mm3 Hgb 13.0 (11.2-15.7) gm/dl Hct 38.1 (34.1-44.9) % MCV 90.1 (79.4-94.8) fl MCH 30.7 (25.6-32.2) pg MCHC 34.1 (32.2-35.5) g/dl RDW Std Deviation 40.7 (36.4-46.3) fL Plt Count 197 (182-369) K/mm3 MPV 9.8 (9.4-12.3) fl Neut % (Auto) 70.9 (34.0-71.1) % Lymph % (Auto) 17.3 L (19.3-51.7) % [place] % (Auto) 9.8 (4.7-12.5) % Eos % (Auto) 1.7 (0.7-5.8) Baso % (Auto) 0.2 (0.1-1.2) % Neut # (Auto) 7.34 H (1.56-6.13) K/mm3 Lymph # (Auto) 1.79 (1.18-3.74) K/mm3 [place] # (Auto) 1.02 H (0.24-0.36) K/mm3 Eos # (Auto) 0.18 (0.04-0.36) K/mm3 Baso # (Auto) 0.02 (0.01-0.08) K/mm3 Sodium 138 (136-145) mEq/L Potassium 3.9 (3.5-5.1) mEq/L Chloride 103 (98-107) mEq/L Carbon Dioxide 22 (21-32) mEq/L Anion Gap 16.9 H (5-15) BUN 5 L (7-18) mg/dL Creatinine 0.6 (0.55-1.02) mg/dL Est Cr Clr Drug Dosing 107.63 mL/min Estimated GFR (MDRD) > 60 (>60) mL/min BUN/Creatinine Ratio 8.3 L (14-18) Glucose 110 H (70-99) mg/dL Calcium 8.8 (8.5-10.1) mg/dL Total Bilirubin 0.4 (0.2-1.0) mg/dL AST 17 (15-37) U/L ALT 34 (14-59) U/L Alkaline Phosphatase 48 (46-116) U/L C-Reactive Protein (<1.0) mg/dL Total Protein 6.9 (6.4-8.2) g/dl Albumin 2.5 L (3.4-5.0) g/dl Globulin 4.4 gm/dL Albumin/Globulin Ratio 0.6 L (1-2) Vancomycin Trough 11.0 (10.0-20.0) 01/13/ Range/Units 05:15 WBC (3.98-10.04) K/mm3 RBC (3.98-5.22) M/mm3 Hgb (11.2-15.7) gm/dl Hct (34.1-44.9) % MCV (79.4-94.8) fl MCH (25.6-32.2) pg MCHC (32.2-35.5) g/dl RDW Std Deviation (36.4-46.3) fL Plt Count (182-369) K/mm3 MPV (9.4-12.3) fl Neut % (Auto) (34.0-71.1) % Lymph % (Auto) (19.3-51.7) % [place] % (Auto) (4.7-12.5) % Eos % (Auto) (0.7-5.8) Baso % (Auto) (0.1-1.2) % Neut # (Auto) (1.56-6.13) K/mm3 Lymph # (Auto) (1.18-3.74) K/mm3 [place] # (Auto) (0.24-0.36) K/mm3 Eos # (Auto) (0.04-0.36) K/mm3 Baso # (Auto) (0.01-0.08) K/mm3 Sodium (136-145) mEq/L Potassium (3.5-5.1) mEq/L Chloride (98-107) mEq/L Carbon Dioxide (21-32) mEq/L Anion Gap (5-15) BUN (7-18) mg/dL Creatinine (0.55-1.02) mg/dL Est Cr Clr Drug Dosing mL/min Estimated GFR (MDRD) (>60) mL/min BUN/Creatinine Ratio (14-18) Glucose (70-99) mg/dL Calcium (8.5-10.1) mg/dL Total Bilirubin (0.2-1.0) mg/dL AST (15-37) U/L ALT (14-59) U/L Alkaline Phosphatase (46-116) U/L C-Reactive Protein 6.8 H* (<1.0) mg/dL Total Protein (6.4-8.2) g/dl Albumin (3.4-5.0) g/dl Globulin gm/dL Albumin/Globulin Ratio (1-2) Vancomycin Trough (10.0-20.0) Darnell Results Last 24 Hours: Microbiology 01/11/21 14:30 MRSA Culture - Final Nasal/Axilla/Groin NO MRSA ISOLATED 01/11/21 12:09 Aerobic Blood Culture - Preliminary Blood - Venous NO GROWTH AFTER 1 DAY Anaerobic Blood Culture - Preliminary NO GROWTH AFTER 1 DAY 01/11/21 12:16 Aerobic Blood Culture - Preliminary Blood - Venous - Lab Draw NO GROWTH AFTER 1 DAY Anaerobic Blood Culture - Preliminary NO GROWTH AFTER 1 DAY Med Orders - Current: Current Medications Acetaminophen (Acetaminophen 325 Mg Tab) 650 mg PO Q6H PRN PRN Reason: Pain (Mild 1-3)/fever Hydrocodone Bitart/Acetaminophen (Acetaminophen/Hydrocodone 325-5 Mg Tab) 1 tab PO Q6H PRN PRN Reason: Pain (moderate 4-6) Last Admin: 01/13/21 05:32 Dose: 1 tab Documented by: Albuterol/Ipratropium (Albuterol/Ipratropium 3.0-0.5 Mg/3 Ml Neb Soln) 3 ml NEB Q4H PRN PRN Reason: Shortness Of Breath/wheezing Aspirin (Aspirin 81 Mg Tab.Ec) 81 mg PO DAILY [facility] Last Admin: 01/12/21 08:24 Dose: 81 mg Documented by: Docusate Sodium (Docusate Sodium 100 Mg Cap) 100 mg PO BID PRN PRN Reason: Constipation Last Admin: 01/11/21 13:17 Dose: 100 mg Documented by: Enoxaparin Sodium (Enoxaparin 40 Mg/0.4 Ml Syringe) 40 mg SUBCUT DAILY [facility] Last Admin: 01/12/21 08:23 Dose: 40 mg Documented by: Hydralazine HCl (Hydralazine 20 Mg/Ml Sdv) 10 mg IVPUSH Q4H PRN PRN Reason: Hypertension Lactated Ringer's (Ringers, Lactated) 1,000 mls @ 65 mls/hr IV ASDIRECTED [facility] Last Admin: 01/12/21 10:43 Dose: 65 mls/hr Documented by: Promethazine HCl 12.5 mg/ (Sodium Chloride) 50.5 mls @ 100 mls/hr IV Q6H PRN PRN Reason: Nausea/Vomiting Ceftriaxone Sodium 2 gm/ (Sodium Chloride) 100 mls @ 200 mls/hr IV Q24H [facility] Last Admin: 01/12/21 08:26 Dose: 200 mls/hr Documented by: Vancomycin HCl 1 gm/Vancomycin HCl 250 mg/ Sodium Chloride 250 mls @ 166.667 mls/hr IV Q8H [facility] Last Admin: 01/13/21 03:33 Dose: 166.667 mls/hr Documented by: Miscellaneous Information (Remove Patch *Nicotine Patch*) 1 ea TRDERM DAILY [facility] Last Admin: 01/12/21 08:24 Dose: 1 ea Documented by: Morphine Sulfate (Morphine 2 Mg/Ml Syringe) 2 mg IVPUSH Q2H PRN PRN Reason: Pain Last Admin: 01/13/21 03:28 Dose: 2 mg Documented by: Nicotine (Nicotine 14 Mg/24 Hr Patch) 14 mg TRDERM DAILY [facility] Last Admin: 01/12/21 08:24 Dose: 14 mg Documented by: Sodium Chloride (Sodium Chloride 0.9% 10 Ml Syringe) 10 ml FLUSH ASDIRECTED PRN PRN Reason: Keep Vein Open Last Admin: 01/11/21 16:34 Dose: 10 ml Documented by: Vancomycin HCl (Pharmacy To Dose - Vancomycin) 1 dose .XX ASDIRECTED PRN PRN Reason: RX TO DOSE VANCO Discontinued Medications Enoxaparin Sodium (Enoxaparin 40 Mg/0.4 Ml Syringe) 40 mg SUBCUT Q24H [facility] Last Admin: 01/11/21 13:16 Dose: 40 mg Documented by: Enoxaparin Sodium (Enoxaparin 80 Mg/0.8 Ml Syringe) 70 mg SUBCUT BID [facility] Enoxaparin Sodium (Enoxaparin 30 Mg/0.3 Ml Syringe) 30 mg SUBCUT ONETIME ONE Stop: 01/11/21 16:31 Last Admin: 01/11/21 16:48 Dose: 30 mg Documented by: Enoxaparin Sodium (Enoxaparin 80 Mg/0.8 Ml Syringe) 70 mg SUBCUT BID [facility] Enoxaparin Sodium (Enoxaparin 80 Mg/0.8 Ml Syringe) 70 mg SUBCUT ONETIME ONE Stop: 01/11/21 23:01 Enoxaparin Sodium (Enoxaparin 80 Mg/0.8 Ml Syringe) 70 mg SUBCUT BID [facility] Hydromorphone HCl (Hydromorphone 0.5 Mg/0.5 Ml Syringe) 0.5 mg IVPUSH ONETIME ONE Stop: 01/11/21 11:07 Last Admin: 01/11/21 11:09 Dose: 0.5 mg Documented by: Sodium Chloride (Normal Saline) 1,000 mls @ 150 mls/hr IV ASDIRECTED [facility] Last Admin: 01/11/21 11:07 Dose: 150 mls/hr Documented by: Ceftriaxone Sodium 2 gm/ (Sodium Chloride) 100 mls @ 200 mls/hr IV ONETIME ONE Stop: 01/11/21 11:18 Last Admin: 01/11/21 11:07 Dose: 200 mls/hr Documented by: Vancomycin HCl 1.5 gm/ Sodium (Chloride) 250 mls @ 250 mls/hr IV ONETIME ONE Stop: 01/11/21 11:52 Last Admin: 01/11/21 11:51 Dose: 250 mls/hr Documented by: Ceftriaxone Sodium 1 gm/ (Sodium Chloride) 100 mls @ 200 mls/hr IV Q24H [facility] Vancomycin HCl 1 gm/ Sodium (Chloride) 250 mls @ 250 mls/hr IV Q12H [facility] Last Admin: 01/12/21 13:46 Dose: Not Given Documented by: Vancomycin HCl 1 gm/ Sodium (Chloride) 250 mls @ 250 mls/hr IV Q8H [facility] Last Admin: 01/12/21 03:43 Dose: 250 mls/hr Documented by: Ceftriaxone Sodium 1 gm/ (Sodium Chloride) 100 mls @ 200 mls/hr IV ONETIME ONE Stop: 01/11/21 16:01 Last Admin: 01/11/21 18:57 Dose: Not Given Documented by: Sodium Chloride (Normal Saline) 100 mls @ 75 mls/hr IV ASDIRECTED [facility] Last Admin: 01/11/21 16:34 Dose: 75 mls/hr Documented by: Iopamidol (Iopamidol 755 Mg/Ml 100 Ml Bottle) 100 ml IVPUSH ONETIME ONE Stop: 01/11/21 16:11 Last Admin: 01/11/21 16:34 Dose: 100 ml Documented by: Morphine Sulfate (Morphine 2 Mg/Ml Syringe) 2 mg IVPUSH Q4H PRN PRN Reason: Pain (severe 7-10) Stop: 01/12/21 18:49 Last Admin: 01/11/21 14:53 Dose: 2 mg Documented by: - Exam Quality Assessment: DVT Prophylaxis. No: Supplemental Oxygen General: Alert, Oriented, Cooperative HEENT: Pupils Equal, Pupils Reactive, EOMI, Mucous Membr. Moist/[place] Neck: Supple, Trachea Midline Lungs: Normal Respiratory Effort, Rales (Bibasilar) Cardiovascular: Regular Rate, Regular Rhythm GI/Abdominal Exam: Normal Bowel Sounds, Soft, Non-Tender, No Distention (Female) Exam: Deferred Back Exam: Normal Inspection, Full Range of Motion Extremities: Normal Inspection, Normal Range of Motion, No Pedal Edema Skin: Other (Area of cellulitis left antecubital fossa with edema improved) Neurological: No New Focal Deficit, Normal Gait Psy/Mental Status: Alert, Normal Affect, Normal Mood - Patient Data Lab Results Last 24 hrs: Laboratory Results - last 24 hr 01/12/21 01/13/21 01/13/21 Range/Units 11:00 05:15 05:15 WBC 10.36 H (3.98-10.04) K/mm3 RBC 4.23 (3.98-5.22) M/mm3 Hgb 13.0 (11.2-15.7) gm/dl Hct 38.1 (34.1-44.9) % MCV 90.1 (79.4-94.8) fl MCH 30.7 (25.6-32.2) pg MCHC 34.1 (32.2-35.5) g/dl RDW Std Deviation 40.7 (36.4-46.3) fL Plt Count 197 (182-369) K/mm3 MPV 9.8 (9.4-12.3) fl Neut % (Auto) 70.9 (34.0-71.1) % Lymph % (Auto) 17.3 L (19.3-51.7) % [place] % (Auto) 9.8 (4.7-12.5) % Eos % (Auto) 1.7 (0.7-5.8) Baso % (Auto) 0.2 (0.1-1.2) % Neut # (Auto) 7.34 H (1.56-6.13) K/mm3 Lymph # (Auto) 1.79 (1.18-3.74) K/mm3 [place] # (Auto) 1.02 H (0.24-0.36) K/mm3 Eos # (Auto) 0.18 (0.04-0.36) K/mm3 Baso # (Auto) 0.02 (0.01-0.08) K/mm3 Sodium 138 (136-145) mEq/L Potassium 3.9 (3.5-5.1) mEq/L Chloride 103 (98-107) mEq/L Carbon Dioxide 22 (21-32) mEq/L Anion Gap 16.9 H (5-15) BUN 5 L (7-18) mg/dL Creatinine 0.6 (0.55-1.02) mg/dL Est Cr Clr Drug Dosing 107.63 mL/min Estimated GFR (MDRD) > 60 (>60) mL/min BUN/Creatinine Ratio 8.3 L (14-18) Glucose 110 H (70-99) mg/dL Calcium 8.8 (8.5-10.1) mg/dL Total Bilirubin 0.4 (0.2-1.0) mg/dL AST 17 (15-37) U/L ALT 34 (14-59) U/L Alkaline Phosphatase 48 (46-116) U/L C-Reactive Protein (<1.0) mg/dL Total Protein 6.9 (6.4-8.2) g/dl Albumin 2.5 L (3.4-5.0) g/dl Globulin 4.4 gm/dL Albumin/Globulin Ratio 0.6 L (1-2) Vancomycin Trough 11.0 (10.0-20.0) 01/13/21 Range/Units 05:15 WBC (3.98-10.04) K/mm3 RBC (3.98-5.22) M/mm3 Hgb (11.2-15.7) gm/dl Hct (34.1-44.9) % MCV (79.4-94.8) fl MCH (25.6-32.2) pg MCHC (32.2-35.5) g/dl RDW Std Deviation (36.4-46.3) fL Plt Count (182-369) K/mm3 MPV (9.4-12.3) fl Neut % (Auto) (34.0-71.1) % Lymph % (Auto) (19.3-51.7) % [place] % (Auto) (4.7-12.5) % Eos % (Auto) (0.7-5.8) Baso % (Auto) (0.1-1.2) % Neut # (Auto) (1.56-6.13) K/mm3 Lymph # (Auto) (1.18-3.74) K/mm3 [place] # (Auto) (0.24-0.36) K/mm3 Eos # (Auto) (0.04-0.36) K/mm3 Baso # (Auto) (0.01-0.08) K/mm3 Sodium (136-145) mEq/L Potassium (3.5-5.1) mEq/L Chloride (98-107) mEq/L Carbon Dioxide (21-32) mEq/L Anion Gap (5-15) BUN (7-18) mg/dL Creatinine (0.55-1.02) mg/dL Est Cr Clr Drug Dosing mL/min Estimated GFR (MDRD) (>60) mL/min BUN/Creatinine Ratio (14-18) Glucose (70-99) mg/dL Calcium (8.5-10.1) mg/dL Total Bilirubin (0.2-1.0) mg/dL AST (15-37) U/L ALT (14-59) U/L Alkaline Phosphatase (46-116) U/L C-Reactive Protein 6.8 H* (<1.0) mg/dL Total Protein (6.4-8.2) g/dl Albumin (3.4-5.0) g/dl Globulin gm/dL Albumin/Globulin Ratio (1-2) Vancomycin Trough (10.0-20.0) Result Diagrams: 01/13/21 05:15 01/13/21 05:15 Darnell Results Last 24 hrs: Microbiology 01/11/21 14:30 MRSA Culture - Final Nasal/Axilla/Groin NO MRSA ISOLATED 01/11/21 12:09 Aerobic Blood Culture - Preliminary Blood - Venous NO GROWTH AFTER 1 DAY Anaerobic Blood Culture - Preliminary NO GROWTH AFTER 1 DAY 01/11/21 12:16 Aerobic Blood Culture - Preliminary Blood - Venous - Lab Draw NO GROWTH AFTER 1 DAY Anaerobic Blood Culture - Preliminary NO GROWTH AFTER 1 DAY Sepsis Event Note - Evaluation Sepsis Screening Result: No Definite Risk - Focused Exam Vital Signs: Vital Signs Temp Pulse Resp BP Pulse Ox Pulse Ox 01/13/21 03:32 36.8 C 90 124/72 99 01/13/21 00:52 36.7 C 87 16 113/68 97 01/12/21 21:00 100 01/12/21 20:45 37.1 C 94 111/68 100 - Problem List & Annotations (1) Cellulitis of left arm SNOMED Code(s): 483676445 Code(s): L03.114 - CELLULITIS OF LEFT UPPER LIMB Status: Acute Priority: High Current Visit: Yes (2) IVDU (intravenous drug user) SNOMED Code(s): 015408330 Code(s): F19.90 - OTHER PSYCHOACTIVE SUBSTANCE USE, UNSPECIFIED, UNCOMPLICATED Status: Chronic Priority: High Current Visit: Yes (3) Bacteremia due to Staphylococcus aureus SNOMED Code(s): 588189622 Code(s): R78.81 - BACTEREMIA; B95.61 - METHICILLIN SUSCEP STAPH INFCT CAUSING DIS CLASSD [id number] Status: Acute Current Visit: Yes (4) Pneumonia due to methicillin resistant Staphylococcus aureus (MRSA) SNOMED Code(s): 909093744502747 Code(s): J15.212 - PNEUMONIA DUE TO METHICILLIN RESISTANT STAPHYLOCOCCUS AUREUS Status: Acute Priority: High Current Visit: Yes Qualifiers: Laterality: bilateral Lung location: lower lobe of lung Qualified Code(s): J15.212 - Pneumonia due to Methicillin resistant Staphylococcus aureus - Problem List Review Problem List Initiated/Reviewed/Updated: Yes - My Orders Last 24 Hours: My Active Orders 01/12/21 Lunch Regular Diet [DIET] 01/13/21 07:28 CXR [Chest 1V Frontal] [CR] Routine 01/13/21 11:00 VANCOMYCIN TROUGH [CHEM] Timed - Plan Plan:: Patient is a 40-year-old female with a history of IV drug abuse (amphetamine) and a current smoker who was called back due to positive blood [id number] cocci. Patient came to the ER yesterday due to left forearm pain swelling and redness. Assessment and plan: Bacteremia -Blood culture showed gram-positive cocci from all 4 bottles -IV drug abuse -History of positive MRSA -Repeat blood culture -Denies sympathetic cardiac valves -Echocardiogram -Repeat MRSA screen -Vancomycin (pharmacy to dose) and ceftriaxone -IV fluid Acute cellulitis, left forearm -IV substance abuse -Ultrasound to rule out abscess -Blood culture -White blood cells 15.66 -Vancomycin and ceftriaxone Substance abuse -She admits that she injected amphetamine, last dose was 4 days ago -Urine drug screen -Aspirin -transit worker consult Tobacco abuse disorder -Smoking cessation counseling -Nicotine patch Chest pain -Has been having substernal chest pain for 4 days -Pain with breathing. No pain no breathing -Troponin -EKG no ST elevation -Chest CT -Aspirin DVT prophylaxis: Lovenox CODE STATUS: Full Disposition: 3 to 4 days 01/12/2021 Patient is a 40-year-old lady who has a history of IV drug use and admits to self injecting drugs of abuse into her left arm. The patient rapidly developed abscess. Patient does have a history of MRSA and cultures are currently pending. The patient also has had blood cultures that have been positive for gram-positive staph aureus. The patient therefore will be treated for presumptive MRSA. We will continue with ceftriaxone and vancomycin. We will de-escalate antibiotics as cultures indicate. Patient's diet has been advanced. She has been encouraged to ambulate. She is also on DVT prophylaxis with the use of enoxaparin 40 mg twice a day. Sepsis has been ruled out. Repeat laboratory studies have been ordered. I have also ordered a chest x-ray for the morning. The patient should be appropriate for discharge in 1 to 2 days. The patient says that she is giving up IV drugs. 01/13/2021 The patient is a 40-year-old lady who will be kept in hospitalization for treatment of her MRSA bacteremia for now. I have discontinued the patient's ceftriaxone and will treat the patient with vancomycin for both areas cellulitis as well as MRSA pneumonia. The patient's pneumonia may be the result of septic emboli from her thrombosed cephalic vein. Chest x-ray revealed worsening bibasilar pneumonia however the patient is doing better today. The patient will be continued on her vancomycin as she also has had positive blood cultures for gram-positive cocci as of January 13, 2021. Patient's diet will be continued. The patient will likely need to have continuation of IV antibiotics after discharge. The patient also will need to have a PICC line after negative blood cultures. The patient has been encouraged to ambulate. The patient will remain on anticoagulation. Repeat laboratory studies been ordered. The patient should be appropriate for discharge in 1 to 2 days.
[2021-01-13] MEDS: Aspirin 81 MG Tab.EC PO SCH (08:02)
[2021-01-13] MEDS: Docusate Sodium 100 MG Cap PO PRN (08:02)
[2021-01-13] MEDS: Remove Patch *NICOTINE PATCH TRDERM SCH (08:03)
[2021-01-13] MEDS: Nicotine 14 MG/24 Hr Patch TRDERM SCH (08:03)
[2021-01-13] MEDS: cefTRIAXone 2 GM in Sodium Chloride 0.9% 100 ML IV SCH (08:03)
[2021-01-13] MEDS: Enoxaparin 40 MG/0.4 ML Syringe SUBCUT SCH (08:03)
--- NOTE | 2021-01-13 08:15 | CR ---
Chest: Portable view of the chest was obtained. Comparison: Prior chest CT study of 01/11/21 and chest x-ray of 01/10/21. Patchy areas of increased density are seen within both lung bases. This is an interval change from prior chest x-ray. Findings have slightly worsened within both lung bases from prior chest CT. Heart size and mediastinum are normal. No acute osseous abnormality is appreciated. Impression: 1. Slight increasing density within both lung bases which appear mildly increased from prior chest x-ray and chest CT. Findings most likely represent mild worsening bibasilar pneumonia. Please correlate with the patient's symptoms. Diagnostic code #3
[2021-01-13] MEDS: Lactated Ringers 1,000 ML IV SCH (08:42)
--- NOTE | 2021-01-13 09:30 | PCM.EKG ---
#1 Interpretation EKG Date: 01/11/21 Time: 18:59 Rhythm: Other (Tachycardia with a rate of 102 bpm) Rate (Beats/Min): 102 [place]: Normal P-Wave: Present QRS: Normal ST-T: Normal QT: Normal Comparison: NA - No Prior EKG EKG Interpretation Comments: No evidence of LVH, otherwise normal EKG
--- NOTE | 2021-01-13 14:08 | PCM.SN.2 ---
- Free Text/Narrative Note: Called for a difficult IV start. Apoorva has a history of IV drug abuse and very difficult IV starts. Multiple failed attempts by nursing staff. IV attempted x 3. Successful insertion in the left upper arm, 20 gauge inserted with IV start kit. Chlorhexidine skin prep, good blood return, flushed with 20 ml of saline. Secured with transparent dressing and tape.
[2021-01-13] MEDS ORDERED: Temazepam 15 MG Cap PO PRN (18:02)
[2021-01-13] MEDS: Linezolid 600 MG Tab PO SCH (20:36)
[2021-01-14] MEDS: Acetaminophen/HYDROcodone 325-5 MG Tab PO PRN ×2 (00:17→08:31)
[2021-01-14] MEDS: Morphine 2 MG/ML SYRINGE IVPUSH PRN ×4 (00:18→11:53)
[2021-01-14] MEDS: Remove Patch *NICOTINE PATCH TRDERM SCH (08:00)
--- NOTE | 2021-01-14 08:26 | PCM.DCSUM1 ---
Discharge Summary - Hospital Course Diagnosis: Stroke: No - Discharge Data Discharge Date: 01/14/21 Discharge Disposition: Home, Self-Care 01 Condition: Good - Referral to Home Health Primary Care Physician: Karina Atkinson MD - Discharge Diagnosis/Problem(s) (1) Cellulitis of left arm SNOMED Code(s): 609473969 ICD Code: L03.114 - CELLULITIS OF LEFT UPPER LIMB Status: Acute Priority: High (2) IVDU (intravenous drug user) SNOMED Code(s): 778193878 ICD Code: F19.90 - OTHER PSYCHOACTIVE SUBSTANCE USE, UNSPECIFIED, UNCOMPLICATED Status: Chronic Priority: High (3) Bacteremia due to Staphylococcus aureus SNOMED Code(s): 717457012 ICD Code: R78.81 - BACTEREMIA; B95.61 - METHICILLIN SUSCEP STAPH INFCT CAUSING DIS CLASSD ELSWHR Status: Acute Priority: High (4) Pneumonia due to methicillin resistant Staphylococcus aureus (MRSA) SNOMED Code(s): 558459755838978 ICD Code: J15.212 - PNEUMONIA DUE TO METHICILLIN RESISTANT STAPHYLOCOCCUS AUREUS Status: Acute Priority: High Qualifiers: Laterality: bilateral Lung location: lower lobe of lung Qualified Code(s): J15.212 - Pneumonia due to Methicillin resistant Staphylococcus aureus - Patient Summary/Data Hospital Course: The patient is a 40-year-old lady who has a history of IV drug use had been admitted to acute hospitalization on January 11, 2021 due to abscess in her left antecubital fossa. The patient was also noted to have diffuse bibasilar pneumonia and she was started on ceftriaxone and vancomycin. It was not felt that the patient was septic. Cultures were obtained 2 days earlier and a visit to the emergency room where she had been given pain medications and antibiotics. These were positive for MRSA bacteremia. The cultures had reported to have sensitivity to Zyvox, Bactrim and tetracycline. The patient's ceftriaxone was discontinued as it was likely MRSA pneumonia. She was continued on the vancomycin. The patient also has been complaining of left-sided chest pain over the past several days and the patient had troponins taken which were nondetectable as well as an EKG which had been interpreted as essentially normal. Otherwise, the patient's pain had been controlled with the use of narcotic pain medications. During the patient's hospitalization it was reported that she had cephalic vein thrombus of her left arm. The patient had been maintained on anticoagulation and since this was a relatively superficial vein was decided not to pursue p.o. anticoagulations. The patient also had a CT scan of her chest which did not suggest any pulmonary emboli. It was believed that the patient's bibasilar pneumonia was likely septic emboli. On the day prior to discharge the patient had been transitioned to p.o. Zyvox 600 mg p.o. twice daily. According to up-to-date it is recommended that the patient have at least 14 days worth of parental antibiotics. A PICC line and an IV drug user would not necessarily be appropriate. The patient also had 1 bottle out of 4 growing gram-positive cocci on January 14, 2021 after 43 hours of incubation. This was thought to be a contaminant. The patient overall had improved sufficiently that it was felt that the patient could go home safely with an additional 2 weeks worth of Zyvox. The patient had been tolerating her diet. She also has activity as tolerated. She has not been on oxygen support. Patient otherwise has been discharged from acute hospitalization with the recommendations listed above. - Patient Instructions Diet: Usual Diet as Tolerated Activity: As Tolerated, Elevate Extremity Notify Provider of: Fever, Increased Pain, Swelling and Redness - Discharge Plan *PRESCRIPTION DRUG MONITORING PROGRAM REVIEWED*: No *COPY OF PRESCRIPTION DRUG MONITORING REPORT IN PATIENT CHUCK: No Prescriptions/Med Rec: Nicotine [Habitrol] 14 mg TRDERM DAILY #20 patch Linezolid [Zyvox] 600 mg PO Q12H #28 tablet Tobacco Cessation Medication: Prescription Given Home Medications: Home Meds Acetaminophen/oxyCODONE [Percocet 325-5 MG] 1 each PO Q6H PRN #12 tab 01/10/21 [Rx] Acetaminophen [Tylenol] 650 mg PO Q6H PRN tablet 01/14/21 [Rx] Aspirin [Halfprin] 81 mg PO DAILY tab.ec 01/14/21 [Rx] Linezolid [Zyvox] 600 mg PO Q12H #28 tablet 01/14/21 [Rx] Nicotine [Habitrol] 14 mg TRDERM DAILY #20 patch 01/14/21 [Rx] Oxygen Therapy Mode: Room Air Patient Handouts: Illegal Drug Use Information, Adult, Methamphetamines Use Disorder, Steps to Quit Smoking Forms: ED Department Discharge Referrals: Karina Atkinson MD [Primary Care Provider] - 01/23/21 8:00 am (Please arrive at 0800 for check in) - Discharge Summary/Plan Comment DC Time >30 min.: Yes - General Info Date of Service: 01/14/21 Admission Dx/Problem (Free Text: Cellulitis from injection site left antecubital fossa, MRSA bacteremia, bibasilar pneumonia likely MRSA. Subjective Update: The patient has been doing well. She has no other complaints today. Her pain has been controlled. She feels like she can go home. Functional Status: Reports: Pain Controlled - Review of Systems General: Reports: No Symptoms HEENT: Reports: No Symptoms Pulmonary: Reports: No Symptoms Cardiovascular: Reports: No Symptoms Gastrointestinal: Reports: No Symptoms Genitourinary: Reports: No Symptoms Musculoskeletal: Reports: Arm Pain Skin: Reports: Other (Cellulitis, improving) Neurological: Reports: No Symptoms Psychiatric: Reports: No Symptoms - Patient Data Vitals - Most Recent: Last Vital Signs Temp 36.8 C 01/14/21 05:25 Pulse 80 01/14/21 05:25 Resp 19 01/14/21 05:25 BP 90/55 L 01/14/21 05:25 Pulse Ox 97 01/14/21 05:25 Weight - Most Recent: 66.406 kg I&O - Last 24 hours: Intake & Output 01/13/21 01/14/21 01/14/21 22:59 06:59 14:59 Intake Total 1302 600 Output Total 1200 1200 Balance 102 -600 Lab Results - Last 24 hrs: Laboratory Results - last 24 hr 01/14/21 01/14/21 Range/Units 05:04 05:04 WBC 8.28 (3.98-10.04) K/mm3 RBC 4.21 (3.98-5.22) M/mm3 Hgb 12.7 (11.2-15.7) gm/dl Hct 38.3 (34.1-44.9) % MCV 91.0 (79.4-94.8) fl MCH 30.2 (25.6-32.2) pg MCHC 33.2 (32.2-35.5) g/dl RDW Std Deviation 41.6 (36.4-46.3) fL Plt Count 231 (182-369) K/mm3 MPV 9.4 (9.4-12.3) fl Neut % (Auto) 61.3 (34.0-71.1) % Lymph % (Auto) 25.4 (19.3-51.7) % Cannon % (Auto) 11.0 (4.7-12.5) % Eos % (Auto) 1.9 (0.7-5.8) Baso % (Auto) 0.2 (0.1-1.2) % Neut # (Auto) 5.07 (1.56-6.13) K/mm3 Lymph # (Auto) 2.10 (1.18-3.74) K/mm3 Cannon # (Auto) 0.91 H (0.24-0.36) K/mm3 Eos # (Auto) 0.16 (0.04-0.36) K/mm3 Baso # (Auto) 0.02 (0.01-0.08) K/mm3 Sodium 140 (136-145) mEq/L Potassium 4.2 (3.5-5.1) mEq/L Chloride 104 (98-107) mEq/L Carbon Dioxide 26 (21-32) mEq/L Anion Gap 14.2 (5-15) BUN 6 L (7-18) mg/dL Creatinine 0.6 (0.55-1.02) mg/dL Est Cr Clr Drug Dosing 107.63 mL/min Estimated GFR (MDRD) > 60 (>60) mL/min BUN/Creatinine Ratio 10.0 L (14-18) Glucose 115 H (70-99) mg/dL Calcium 8.5 (8.5-10.1) mg/dL Total Bilirubin 0.3 (0.2-1.0) mg/dL AST 17 (15-37) U/L ALT 33 (14-59) U/L Alkaline Phosphatase 47 (46-116) U/L Total Protein 7.5 (6.4-8.2) g/dl Albumin 2.5 L (3.4-5.0) g/dl Globulin 5.0 gm/dL Albumin/Globulin Ratio 0.5 L (1-2) [facility]STIAN Results - Last 24 hrs: Microbiology 01/11/21 12:16 Aerobic Blood Culture - Preliminary Blood - Venous - Lab Draw Gram Positive Cocci Anaerobic Blood Culture - Preliminary NO GROWTH AFTER 2 DAYS 01/11/21 12:09 Aerobic Blood Culture - Preliminary Blood - Venous NO GROWTH AFTER 2 DAYS Anaerobic Blood Culture - Preliminary NO GROWTH AFTER 2 DAYS Med Orders - Current: Current Medications Acetaminophen (Acetaminophen 325 Mg Tab) 650 mg PO Q6H PRN PRN Reason: Pain (Mild 1-3)/fever Hydrocodone Bitart/Acetaminophen (Acetaminophen/Hydrocodone 325-5 Mg Tab) 1 tab PO Q6H PRN PRN Reason: Pain (moderate 4-6) Last Admin: 01/14/21 00:17 Dose: 1 tab Documented by: Albuterol/Ipratropium (Albuterol/Ipratropium 3.0-0.5 Mg/3 Ml Neb Soln) 3 ml NEB Q4H PRN PRN Reason: Shortness Of Breath/wheezing Aspirin (Aspirin 81 Mg Tab.Ec) 81 mg PO DAILY [facility] Last Admin: 01/13/21 08:02 Dose: 81 mg Documented by: Docusate Sodium (Docusate Sodium 100 Mg Cap) 100 mg PO BID PRN PRN Reason: Constipation Last Admin: 01/13/21 08:02 Dose: 100 mg Documented by: Enoxaparin Sodium (Enoxaparin 40 Mg/0.4 Ml Syringe) 40 mg SUBCUT DAILY [facility] Last Admin: 01/13/21 08:03 Dose: 40 mg Documented by: Hydralazine HCl (Hydralazine 20 Mg/Ml Sdv) 10 mg IVPUSH Q4H PRN PRN Reason: Hypertension Promethazine HCl 12.5 mg/ (Sodium Chloride) 50.5 mls @ 100 mls/hr IV Q6H PRN PRN Reason: Nausea/Vomiting Linezolid (Linezolid 600 Mg Tab) 600 mg PO Q12H [facility] Last Admin: 01/13/21 20:36 Dose: 600 mg Documented by: Miscellaneous Information (Remove Patch *Nicotine Patch*) 1 ea TRDERM DAILY [facility] Last Admin: 01/13/21 08:03 Dose: 1 ea Documented by: Morphine Sulfate (Morphine 2 Mg/Ml Syringe) 2 mg IVPUSH Q2H PRN PRN Reason: Pain Last Admin: 01/14/21 05:34 Dose: 2 mg Documented by: Nicotine (Nicotine 14 Mg/24 Hr Patch) 14 mg TRDERM DAILY [facility] Last Admin: 01/13/21 08:03 Dose: 14 mg Documented by: Sodium Chloride (Sodium Chloride 0.9% 10 Ml Syringe) 10 ml FLUSH ASDIRECTED PRN PRN Reason: Keep Vein Open Last Admin: 01/11/21 16:34 Dose: 10 ml Documented by: Temazepam (Temazepam 15 Mg Cap) 15 mg PO BEDTIME PRN PRN Reason: Sleep Last Admin: 01/13/21 20:36 Dose: 15 mg Documented by: Discontinued Medications Enoxaparin Sodium (Enoxaparin 40 Mg/0.4 Ml Syringe) 40 mg SUBCUT Q24H [facility] Last Admin: 01/11/21 13:16 Dose: 40 mg Documented by: Enoxaparin Sodium (Enoxaparin 80 Mg/0.8 Ml Syringe) 70 mg SUBCUT BID [facility] Enoxaparin Sodium (Enoxaparin 30 Mg/0.3 Ml Syringe) 30 mg SUBCUT ONETIME ONE Stop: 01/11/21 16:31 Last Admin: 01/11/21 16:48 Dose: 30 mg Documented by: Enoxaparin Sodium (Enoxaparin 80 Mg/0.8 Ml Syringe) 70 mg SUBCUT BID [facility] Enoxaparin Sodium (Enoxaparin 80 Mg/0.8 Ml Syringe) 70 mg SUBCUT ONETIME ONE Stop: 01/11/21 23:01 Enoxaparin Sodium (Enoxaparin 80 Mg/0.8 Ml Syringe) 70 mg SUBCUT BID [facility] Hydromorphone HCl (Hydromorphone 0.5 Mg/0.5 Ml Syringe) 0.5 mg IVPUSH ONETIME ONE Stop: 01/11/21 11:07 Last Admin: 01/11/21 11:09 Dose: 0.5 mg Documented by: Sodium Chloride (Normal Saline) 1,000 mls @ 150 mls/hr IV ASDIRECTED [facility] Last Admin: 01/11/21 11:07 Dose: 150 mls/hr Documented by: Ceftriaxone Sodium 2 gm/ (Sodium Chloride) 100 mls @ 200 mls/hr IV ONETIME ONE Stop: 01/11/21 11:18 Last Admin: 01/11/21 11:07 Dose: 200 mls/hr Documented by: Vancomycin HCl 1.5 gm/ Sodium (Chloride) 250 mls @ 250 mls/hr IV ONETIME ONE Stop: 01/11/21 11:52 Last Admin: 01/11/21 11:51 Dose: 250 mls/hr Documented by: Lactated Ringer's (Ringers, Lactated) 1,000 mls @ 65 mls/hr IV ASDIRECTED [facility] Last Admin: 01/13/21 08:42 Dose: 65 mls/hr Documented by: Ceftriaxone Sodium 1 gm/ (Sodium Chloride) 100 mls @ 200 mls/hr IV Q24H [facility] Vancomycin HCl 1 gm/ Sodium (Chloride) 250 mls @ 250 mls/hr IV Q12H [facility] Last Admin: 01/12/21 13:46 Dose: Not Given Documented by: Vancomycin HCl 1 gm/ Sodium (Chloride) 250 mls @ 250 mls/hr IV Q8H [facility] Last Admin: 01/12/21 03:43 Dose: 250 mls/hr Documented by: Ceftriaxone Sodium 1 gm/ (Sodium Chloride) 100 mls @ 200 mls/hr IV ONETIME ONE Stop: 01/11/21 16:01 Last Admin: 01/11/21 18:57 Dose: Not Given Documented by: Ceftriaxone Sodium 2 gm/ (Sodium Chloride) 100 mls @ 200 mls/hr IV Q24H [facility] Last Admin: 01/13/21 08:03 Dose: 200 mls/hr Documented by: Sodium Chloride (Normal Saline) 100 mls @ 75 mls/hr IV ASDIRECTED [facility] Last Admin: 01/11/21 16:34 Dose: 75 mls/hr Documented by: Vancomycin HCl 1 gm/Vancomycin HCl 250 mg/ Sodium Chloride 250 mls @ 166.667 mls/hr IV Q8H [facility] Last Admin: 01/13/21 03:33 Dose: 166.667 mls/hr Documented by: Iopamidol (Iopamidol 755 Mg/Ml 100 Ml Bottle) 100 ml IVPUSH ONETIME ONE Stop: 01/11/21 16:11 Last Admin: 01/11/21 16:34 Dose: 100 ml Documented by: Morphine Sulfate (Morphine 2 Mg/Ml Syringe) 2 mg IVPUSH Q4H PRN PRN Reason: Pain (severe 7-10) Stop: 01/12/21 18:49 Last Admin: 01/11/21 14:53 Dose: 2 mg Documented by: Vancomycin HCl (Pharmacy To Dose - Vancomycin) 1 dose .XX ASDIRECTED PRN PRN Reason: RX TO DOSE VANCO - Exam Quality Assessment: Reports: DVT Prophylaxis. Denies: Supplemental Oxygen General: Reports: Alert, Oriented, Cooperative, No Acute Distress HEENT: Reports: Pupils Equal, Pupils Reactive, EOMI, Mucous Membr. Moist/[place] Neck: Reports: Supple, Trachea Midline Lungs: Reports: Clear to Auscultation, Normal Respiratory Effort Cardiovascular: Reports: Regular Rate, Regular Rhythm, No Murmurs GI/Abdominal Exam: Normal Bowel Sounds, Soft, Non-Tender, No Distention (Female) Exam: Deferred Rectal (Female) Exam: Deferred Extremities: Normal Inspection, No Pedal Edema Skin: Reports: Other (Less redness, edema, tenderness left antecubital fossa.) Neurological: Reports: No New Focal Deficit Psy/Mental Status: Reports: Alert, Normal Affect, Normal Mood
[2021-01-14] MEDS: Aspirin 81 MG Tab.EC PO SCH (08:32)
[2021-01-14] MEDS: Linezolid 600 MG Tab PO SCH (08:32)
[2021-01-14] MEDS: Nicotine 14 MG/24 Hr Patch TRDERM SCH (08:33)
[2021-01-14] MEDS: Enoxaparin 40 MG/0.4 ML Syringe SUBCUT SCH (08:33)
== END 2021-01-14 12:02 | disposition home or self-care (01) | DRG 602 ==
LOC: JD.ED 10:32 → JD.MS 11:28
PROVIDERS: ADMIT Internal Medicine; ATTEND Internal Medicine
DX: L03.114 Cellulitis of left upper limb (principal); F19.10 Other psychoactive substance abuse, uncomplicated; J15.212 Pneumonia due to Methicillin resistant Staphylococcus aureus; R78.81 Bacteremia; I82.612 Acute embolism and thrombosis of superficial veins of left upper extremity; I76 Septic arterial embolism; F15.10 Other stimulant abuse, uncomplicated; Z20.822 Contact with and (suspected) exposure to COVID-19; R07.2 Precordial pain; Z90.49 Acquired absence of other specified parts of digestive tract; Z86.14 Personal history of Methicillin resistant Staphylococcus aureus infection; Z86.19 Personal history of other infectious and parasitic diseases; Z79.899 Other long term (current) drug therapy
CPT/HCPCS: 36415; 80053; 83605; 84484; 85025; 86140; 87635; 96365; 96375; 99285; J0696; J1170; J7030; 36410; 71045; 71045-26; 71250; 71250-26; 71275; 71275-26; 76881-26-LT; 76881-LT; 80202; 81025; 87040; 87070; 87641; 93005; 93306; 94762; 99284; A9270-GY; J1650; J2270; J3370; J7050; J7120; Q9967; U0002